=== PATIENT | female | born 1955 | race African-American/Black ===

== ENCOUNTER 2022-01-06 18:55 | Inpatient (IN) | payer OTHER, MEDICAID ==
[~2022-01-06] VITALS: Ht 175.3 cm; Wt 77.1 kg
[2022-01-06 20:46] LABS: Hematocrit 42.5 % (36.0-46.0); Hemoglobin 13.4 g/dL (12.2-16.2); Mean Corpuscular Hemoglobin 27.1 pg (28.0-32.0); Mean Corpuscular Hgb Conc. 31.5 g/dL (32.0-36.0); Red Blood Cells 4.94 10^6/uL (4.0-5.20); Red Cell Distribution Width 13.8 % (11.8-14.3); White Blood Cell 22.6 10^3/uL (4.4-10.8)
[2022-01-06 20:54] LABS: Basophils % (manual) 0 (0.0-2.0); Blast Cells 0; Eosinophils % (manual) 0 (0-7); Myelocytes % 0; Promyelocytes % 0; Reactive Lymphocytes 0
[2022-01-06 21:12] LABS: Albumin 2.2 g/dL (3.4-5.0); BUN/Creatinine Ratio 30.1; Band Neutrophils % (manual) 32; Calcium 8.9 mg/dL (8.5-10.1); Lymphocytes % (manual) 6 (10.0-50.0); Metamyelocytes % 4; Monocytes % (manual) 7 (0-12); Potassium 3.9 mmol/L (3.5-5.1)
[2022-01-06 21:15] LABS: Bilirubin, Total 0.6 mg/dL (0.2-1.0); Total Protein 8.2 g/dL (6.4-8.2)
[2022-01-06] MEDS ORDERED: VANCOMYCIN 1GM/250ML 250 ML IV ONE (22:30)
[2022-01-06] MEDS ORDERED: CEFEPIME 1GM/ 50ML 50 ML IV ONE (22:30)
[2022-01-06] MEDS ORDERED: InsuLIN REG 1unit/0.01ml Soln (100units/ml) IV ONE (22:30)
[2022-01-07 00:10] LABS: Lactic Acid w/Reflex 2.6 mmol/L (0.4-2.0)
[2022-01-07] MEDS ORDERED: DOCUSATE SOD 100 MG CAP PO PRN (01:00)
[2022-01-07] MEDS ORDERED: ONDANSETRON HCL 4 MG/2 ML VIAL IV PRN (01:00)
[2022-01-07] MEDS ORDERED: VANCOMYCIN PER PHARMACY 0 MG IV SCH (01:00)
[2022-01-07] MEDS ORDERED: DEXTROSE (50%) 50ML SYRG IV PRN ×2 (01:00→14:30)
[2022-01-07] MEDS ORDERED: MORPHINE SULFATE INJ 2 MG/ml SYRG IV PRN (02:00)
[2022-01-07] MEDS ORDERED: NITROGLYCERIN 0.4 MG SL TAB SL PRN (02:00)
[2022-01-07 02:55] LABS: Urine Bacteria FEW /hpf (None Seen); Urine Blood TRACE /uL (Negative); Urine Hyaline Cast MANY /lpf (0 - 2); Urine Mucus FEW (None Seen); Urine Specific Gravity 1.019 (1.001-1.035); Urine Sperm PRESENT /hpf (None Seen); Urine WBC 653 /hpf (0 - 5); Urine WBC Clumps PRESENT /hpf (None Seen)
[2022-01-07] MEDS ORDERED: ALBUMIN 25% 100 ML IV ONE (04:00)
[2022-01-07] MEDS: ACCU-CHEK COMFORT CURVE STRIP VI SCH ×8 (04:00→23:34)
[2022-01-07] MEDS: SODIUM CHLORIDE 0.9% 1,000 ML IV SCH ×2 (05:17→17:54)
[2022-01-07 06:20] LABS: Basophils # (auto) 0 10 ^3/uL (0-0.2); Basophils % (auto) 0.1 % (0.0-2.0); Eosinophils # (auto) 0 10 ^3/uL (0-0.8); Eosinophils % (auto) 0.1 % (0.0-7.0); Hematocrit 40.1 % (36.0-46.0); Hemoglobin 12.5 g/dL (12.2-16.2); Lymphocytes # (auto) 1.3 10 ^3/uL (0.4-5.4); Lymphocytes % (auto) 5.7 % (10.0-50.0); Mean Corpuscular Hemoglobin 27.3 pg (28.0-32.0); Mean Corpuscular Hgb Conc. 31.2 g/dL (32.0-36.0); Mean Corpuscular Volume 87.5 fL (80.0-100.0); Monocytes # (auto) 2.8 10 ^3/uL (0-1.3); Monocytes % (auto) 12.2 % (0.0-12.0); Neutrophils % (auto) 81.9 % (37.0-80.0); Red Blood Cells 4.58 10^6/uL (4.0-5.20); Red Cell Distribution Width 13.9 % (11.8-14.3); White Blood Cell 23.2 10^3/uL (4.4-10.8)
[2022-01-07 06:27] LABS: Albumin 1.9 g/dL (3.4-5.0); Calcium 8.6 mg/dL (8.5-10.1); Potassium 3.6 mmol/L (3.5-5.1)
[2022-01-07 06:31] LABS: BUN/Creatinine Ratio 34.7; Bilirubin, Total 0.5 mg/dL (0.2-1.0); Total Protein 7.4 g/dL (6.4-8.2)
[2022-01-07] MEDS: InsuLIN REG 1unit/0.01ml Soln (100units/ml) SC SCH ×8 (07:07→23:34)
[2022-01-07] MEDS: INSULIN LANTUS (GLARGINE) 1 /0.01ml (100units/ml) SC SCH ×2 (07:54→21:54)
[2022-01-07] MEDS ORDERED: CEFEPIME 1GM/ 50ML 50 ML IV SCH (10:00)
[2022-01-07] MEDS: HEPARIN SODIUM (PORCINE) 5000 UNITS/ML 1ML VIAL SC SCH ×2 (10:47→21:53)
[2022-01-07] MEDS: FAMOTIDINE (10MG/ML) 2ML VL IV SCH (10:47)
[2022-01-07] MEDS: ZINC SULFATE 220mg CAP or TAB PO SCH (11:11)
[2022-01-07] MEDS: MULTIPLE VITAMIN TAB PO SCH (11:11)
[2022-01-07] MEDS: ASCORBIC ACID 500 MG TAB PO SCH ×2 (11:11→21:55)
[2022-01-07] MEDS ORDERED: InsuLIN REG 1unit/0.01ml Soln (100units/ml) IV ONE (14:30)
[2022-01-07 16:01] LABS: Calcium 8.8 mg/dL (8.5-10.1)
[2022-01-07] MEDS: ACETAMINOPHEN 325 MG TAB PO PRN (16:09)
[2022-01-07 16:49] LABS: INR 1.13 (0.9-1.15)
[2022-01-07] MEDS: HYDROcodone-ACET 5/325MG TAB PO PRN (21:35)
[2022-01-07] MEDS: CEFEPIME 1GM/ 50ML 50 ML IV SCH (21:56)
[2022-01-08] MEDS: InsuLIN REG 1unit/0.01ml Soln (100units/ml) SC SCH ×5 (00:32→21:50)
[2022-01-08] MEDS: ACCU-CHEK COMFORT CURVE STRIP VI SCH ×5 (00:32→21:46)
[2022-01-08 02:27] VITALS: BP 121/70
[2022-01-08] MEDS ORDERED: CHOL20003 PO (02:31)
[2022-01-08] MEDS ORDERED: LISI2.5T47 PO (02:31)
[2022-01-08] MEDS ORDERED: HYDR12.55 PO (02:31)
[2022-01-08] MEDS: HYDROcodone-ACET 5/325MG TAB PO PRN ×2 (02:48→21:41)
[2022-01-08] MEDS ORDERED: METF-372 PO (03:26)
[2022-01-08] MEDS: VANCOMYCIN 1GM/250ML 250 ML IV SCH (04:58)
[2022-01-08 04:59] VITALS: BP 109/61
[2022-01-08 05:42] LABS: Basophils # (auto) 0 10 ^3/uL (0-0.2); Basophils % (auto) 0.1 % (0.0-2.0); Eosinophils # (auto) 0 10 ^3/uL (0-0.8); Eosinophils % (auto) 0.1 % (0.0-7.0); Lymphocytes # (auto) 1.5 10 ^3/uL (0.4-5.4); Lymphocytes % (auto) 6.6 % (10.0-50.0); Monocytes # (auto) 2.1 10 ^3/uL (0-1.3); Monocytes % (auto) 9.3 % (0.0-12.0); Neutrophils % (auto) 83.9 % (37.0-80.0); Red Blood Cells 4.23 10^6/uL (4.0-5.20); White Blood Cell 22.6 10^3/uL (4.4-10.8)
[2022-01-08 05:43] LABS: Hematocrit 35.7 % (36.0-46.0); Mean Corpuscular Hemoglobin 28.3 pg (28.0-32.0); Mean Corpuscular Hgb Conc. 33.5 g/dL (32.0-36.0); Mean Corpuscular Volume 84.3 fL (80.0-100.0); Red Cell Distribution Width 14.3 % (11.8-14.3)
[2022-01-08 05:51] LABS: Calcium 8.3 mg/dL (8.5-10.1); Potassium 3.2 mmol/L (3.5-5.1)
[2022-01-08 05:56] LABS: BUN/Creatinine Ratio 36.5; Bilirubin, Total 0.4 mg/dL (0.2-1.0)
[2022-01-08] MEDS: INSULIN LANTUS (GLARGINE) 1 /0.01ml (100units/ml) SC SCH ×2 (06:34→21:51)
[2022-01-08 09:00] VITALS: BP 113/55
[2022-01-08] MEDS: HEPARIN SODIUM (PORCINE) 5000 UNITS/ML 1ML VIAL SC SCH (10:00)
[2022-01-08] MEDS: ASCORBIC ACID 500 MG TAB PO SCH ×2 (11:20→21:42)
[2022-01-08] MEDS: ZINC SULFATE 220mg CAP or TAB PO SCH (11:21)
[2022-01-08] MEDS: FAMOTIDINE (10MG/ML) 2ML VL IV SCH (11:21)
[2022-01-08] MEDS: ENOXAPARIN SOD 40 MG/0.4 ML SYRINGE SC SCH (11:21)
[2022-01-08] MEDS: MULTIPLE VITAMIN TAB PO SCH (11:21)
[2022-01-08] MEDS: SODIUM CHLORIDE 0.9% 1,000 ML IV SCH ×2 (11:23→18:00)
[2022-01-08] MEDS: CEFEPIME 1GM/ 50ML 50 ML IV SCH ×2 (11:52→21:56)
[2022-01-08 13:00] VITALS: BP 106/59
[2022-01-08] MEDS ORDERED: LORazepam 0.5 MG TAB PO ONE (14:30)
[2022-01-08] MEDS ORDERED: POTASSIUM CHL 20 Meq TABLET PO ONE (14:30)
[2022-01-08 17:00] VITALS: BP 111/55
[2022-01-08 22:00] VITALS: BP 108/55
[2022-01-09 05:00] VITALS: BP 124/65
[2022-01-09] MEDS: VANCOMYCIN 1GM/250ML 250 ML IV SCH (05:31)
[2022-01-09] MEDS: SODIUM CHLORIDE 0.9% 1,000 ML IV SCH ×2 (05:39→17:10)
[2022-01-09] MEDS: HYDROcodone-ACET 5/325MG TAB PO PRN ×2 (05:57→19:36)
[2022-01-09] MEDS: ACCU-CHEK COMFORT CURVE STRIP VI SCH ×4 (06:23→22:00)
[2022-01-09] MEDS: INSULIN LANTUS (GLARGINE) 1 /0.01ml (100units/ml) SC SCH ×2 (06:25→22:00)
[2022-01-09] MEDS: InsuLIN REG 1unit/0.01ml Soln (100units/ml) SC SCH ×4 (06:26→22:00)
[2022-01-09 08:39] LABS: BUN/Creatinine Ratio 17.9; Calcium 8.1 mg/dL (8.5-10.1); Potassium 3.1 mmol/L (3.5-5.1)
[2022-01-09 08:45] LABS: Basophils # (auto) 0 10 ^3/uL (0-0.2); Eosinophils # (auto) 0 10 ^3/uL (0-0.8); Hematocrit 34.2 % (36.0-46.0); Lymphocytes # (auto) 1.2 10 ^3/uL (0.4-5.4); Lymphocytes % (auto) 4.5 % (10.0-50.0); Mean Corpuscular Hemoglobin 27.5 pg (28.0-32.0); Mean Corpuscular Hgb Conc. 32.2 g/dL (32.0-36.0); Mean Corpuscular Volume 85.3 fL (80.0-100.0); Monocytes % (auto) 7.1 % (0.0-12.0); Neutrophils # (auto) 24.4 10 ^3/uL (1.6-8.6); Neutrophils % (auto) 88.4 % (37.0-80.0); Red Blood Cells 4.01 10^6/uL (4.0-5.20); Red Cell Distribution Width 14.2 % (11.8-14.3)
[2022-01-09 08:51] LABS: White Blood Cell 27.6 10^3/uL (4.4-10.8)
[2022-01-09] MEDS: ENOXAPARIN SOD 40 MG/0.4 ML SYRINGE SC SCH (10:03)
[2022-01-09] MEDS: MULTIPLE VITAMIN TAB PO SCH (10:03)
[2022-01-09] MEDS: ASCORBIC ACID 500 MG TAB PO SCH ×2 (10:03→23:02)
[2022-01-09] MEDS: CEFEPIME 1GM/ 50ML 50 ML IV SCH (10:03)
[2022-01-09] MEDS: ZINC SULFATE 220mg CAP or TAB PO SCH (10:03)
[2022-01-09 10:11] VITALS: BP 96/56
[2022-01-09] MEDS ORDERED: POTASSIUM CHL 20 Meq TABLET PO ONE (12:00)
[2022-01-09 13:00] VITALS: BP 99/58
[2022-01-09] MEDS: CEFEPIME 2 GM in SODIUM CHL 0.9% 50 ML IV SCH ×2 (13:36→22:45)
[2022-01-09] MEDS: ACETAMINOPHEN 325 MG TAB PO PRN (16:43)
[2022-01-09 16:44] VITALS: BP 113/65
[2022-01-09 22:00] VITALS: BP 99/51
[2022-01-10] MEDS: HYDROcodone-ACET 5/325MG TAB PO PRN (04:00)
[2022-01-10 05:00] VITALS: BP 102/55
[2022-01-10] MEDS: VANCOMYCIN 1GM/250ML 250 ML IV SCH (05:02)
[2022-01-10 05:33] LABS: Hematocrit 33.4 % (36.0-46.0); Hemoglobin 10.7 g/dL (12.2-16.2); Mean Corpuscular Hemoglobin 27.1 pg (28.0-32.0); Mean Corpuscular Volume 84.6 fL (80.0-100.0); Red Blood Cells 3.94 10^6/uL (4.0-5.20); Red Cell Distribution Width 14.2 % (11.8-14.3)
[2022-01-10 05:36] LABS: Basophils % (manual) 0 (0.0-2.0); Blast Cells 0; Eosinophils % (manual) 0 (0-7); Metamyelocytes % 0; Myelocytes % 0; Promyelocytes % 0; Reactive Lymphocytes 0
[2022-01-10 05:46] LABS: BUN/Creatinine Ratio 15.5; Calcium 8.1 mg/dL (8.5-10.1); Potassium 3.6 mmol/L (3.5-5.1)
[2022-01-10] MEDS: INSULIN LANTUS (GLARGINE) 1 /0.01ml (100units/ml) SC SCH ×2 (06:05→22:00)
[2022-01-10] MEDS: InsuLIN REG 1unit/0.01ml Soln (100units/ml) SC SCH ×4 (06:05→22:00)
[2022-01-10] MEDS: SODIUM CHLORIDE 0.9% 1,000 ML IV SCH ×2 (06:05→19:50)
[2022-01-10] MEDS: ACCU-CHEK COMFORT CURVE STRIP VI SCH ×4 (06:06→22:20)
[2022-01-10] MEDS: CEFEPIME 2 GM in SODIUM CHL 0.9% 50 ML IV SCH ×3 (06:51→21:56)
[2022-01-10 07:09] LABS: Band Neutrophils % (manual) 27; Lymphocytes % (manual) 12 (10.0-50.0); Monocytes % (manual) 2 (0-12)
[2022-01-10 08:30] VITALS: BP 131/58
[2022-01-10] MEDS: ZINC SULFATE 220mg CAP or TAB PO SCH (09:35)
[2022-01-10] MEDS: ENOXAPARIN SOD 40 MG/0.4 ML SYRINGE SC SCH (09:36)
[2022-01-10] MEDS: MULTIPLE VITAMIN TAB PO SCH (09:36)
[2022-01-10] MEDS: ASCORBIC ACID 500 MG TAB PO SCH ×2 (09:36→21:57)
[2022-01-10] MEDS ORDERED: BUPIVACAINE 0.5% P/F INJ 10 ML VIAL ONE (12:30)
[2022-01-10] MEDS ORDERED: LIDOCAINE 1%HCL (LOCAL ANESTH) 10 ML MDV ONE (12:30)
[2022-01-10 12:35] VITALS: BP 106/58
[2022-01-10 16:32] VITALS: BP 114/61
[2022-01-10] MEDS: ACETAMINOPHEN 325 MG TAB PO PRN (17:54)
[2022-01-10 22:00] VITALS: BP 108/60
[2022-01-11 05:00] VITALS: BP 143/65
[2022-01-11] MEDS: VANCOMYCIN 1GM/250ML 250 ML IV SCH (05:20)
[2022-01-11] MEDS: InsuLIN REG 1unit/0.01ml Soln (100units/ml) SC SCH ×4 (06:16→22:19)
[2022-01-11] MEDS: ACCU-CHEK COMFORT CURVE STRIP VI SCH ×6 (06:17→22:19)
[2022-01-11] MEDS: INSULIN LANTUS (GLARGINE) 1 /0.01ml (100units/ml) SC SCH ×2 (06:17→22:21)
[2022-01-11] MEDS: CEFEPIME 2 GM in SODIUM CHL 0.9% 50 ML IV SCH ×3 (06:18→22:18)
[2022-01-11 06:19] LABS: Hematocrit 33.5 % (36.0-46.0); Hemoglobin 11.2 g/dL (12.2-16.2); Mean Corpuscular Hemoglobin 28.3 pg (28.0-32.0); Mean Corpuscular Hgb Conc. 33.4 g/dL (32.0-36.0); Mean Corpuscular Volume 84.8 fL (80.0-100.0); Red Blood Cells 3.95 10^6/uL (4.0-5.20); Red Cell Distribution Width 14.7 % (11.8-14.3); White Blood Cell 27.9 10^3/uL (4.4-10.8)
[2022-01-11] MEDS ORDERED: BUPIVACAINE 0.5% P/F INJ 10 ML VIAL ONE (06:28)
[2022-01-11] MEDS ORDERED: LIDOCAINE 1%HCL (LOCAL ANESTH) 10 ML MDV ONE (06:28)
[2022-01-11 06:54] LABS: Basophils % (manual) 0 (0.0-2.0); Blast Cells 0; Eosinophils % (manual) 0 (0-7); Metamyelocytes % 0; Myelocytes % 0; Promyelocytes % 0; Reactive Lymphocytes 0
[2022-01-11] MEDS ORDERED: MIDAZOLAM HCL 2MG/2ML 2ml VIAL (1mg/ml) ONE (07:27)
[2022-01-11] MEDS ORDERED: fentaNYL CITRATE 100 MCG/2 ML VL ONE (07:27)
[2022-01-11] MEDS ORDERED: LIDOCAINE 2% (LOCAL ANESTH.) PF 5ml SDV ONE (07:29)
[2022-01-11] MEDS ORDERED: ONDANSETRON HCL 4 MG/2 ML VIAL ONE (07:29)
[2022-01-11] MEDS ORDERED: PROPOFOL 10 MG/ML 20 ML IV ONE (07:29)
[2022-01-11 09:00] VITALS: BP 122/60
[2022-01-11] MEDS ORDERED: ONDANSETRON HCL 4 MG/2 ML VIAL IV PRN (10:00)
[2022-01-11] MEDS ORDERED: MEPERIDINE HCL (25 MG/ML) 1ML VIAL IM ONE (10:00)
[2022-01-11] MEDS ORDERED: HYDROmorphone HCL 2 MG/ML VL/or syr IV PRN (10:00)
[2022-01-11] MEDS: ENOXAPARIN SOD 40 MG/0.4 ML SYRINGE SC SCH (10:00)
[2022-01-11] MEDS ORDERED: MEPERIDINE HCL (25 MG/ML) 1ML VIAL ONE (10:07)
[2022-01-11] MEDS ORDERED: MEPERIDINE HCL (25 MG/ML) 1ML VIAL IV ONE (10:15)
[2022-01-11 10:41] VITALS: BP 124/53
[2022-01-11] MEDS ORDERED: DEXTROSE (50%) 50ML SYRG IV PRN (11:00)
[2022-01-11] MEDS: ZINC SULFATE 220mg CAP or TAB PO SCH (12:43)
[2022-01-11] MEDS: MULTIPLE VITAMIN TAB PO SCH (12:43)
[2022-01-11] MEDS: ASCORBIC ACID 500 MG TAB PO SCH ×2 (12:43→21:54)
[2022-01-11] MEDS: Glucerna Carbsteady SHAKE Vanilla 8oz PO SCH ×2 (12:48→18:36)
[2022-01-11 13:00] VITALS: BP 111/59
[2022-01-11] MEDS ORDERED: ASPirin 81 mg TAB PO ONE (13:00)
[2022-01-11] MEDS ORDERED: ENOXAPARIN SOD 40 MG/0.4 ML SYRINGE SC ONE (13:00)
[2022-01-11 15:32] LABS: Band Neutrophils % (manual) 2; Lymphocytes % (manual) 8 (10.0-50.0); Monocytes % (manual) 12 (0-12)
[2022-01-11 22:00] VITALS: BP 102/51
[2022-01-11] MEDS: SODIUM CHLORIDE 0.9% 1,000 ML IV SCH (22:40)
[2022-01-12] MEDS: ACETAMINOPHEN 325 MG TAB PO PRN (01:25)
[2022-01-12 04:43] VITALS: BP 94/55
[2022-01-12] MEDS: VANCOMYCIN 1GM/250ML 250 ML IV SCH (05:10)
[2022-01-12 05:46] LABS: Hematocrit 29.1 % (36.0-46.0); Hemoglobin 9.6 g/dL (12.2-16.2); Mean Corpuscular Hemoglobin 27.9 pg (28.0-32.0); Mean Corpuscular Hgb Conc. 32.9 g/dL (32.0-36.0); Mean Corpuscular Volume 84.8 fL (80.0-100.0); Red Blood Cells 3.43 10^6/uL (4.0-5.20); Red Cell Distribution Width 14.6 % (11.8-14.3); White Blood Cell 28.5 10^3/uL (4.4-10.8)
[2022-01-12 05:50] LABS: Basophils % (manual) 0 (0.0-2.0); Blast Cells 0; Eosinophils % (manual) 0 (0-7); Myelocytes % 0; Promyelocytes % 0
[2022-01-12] MEDS: InsuLIN REG 1unit/0.01ml Soln (100units/ml) SC SCH ×4 (06:10→21:54)
[2022-01-12] MEDS: CEFEPIME 2 GM in SODIUM CHL 0.9% 50 ML IV SCH ×3 (06:11→21:53)
[2022-01-12] MEDS: INSULIN LANTUS (GLARGINE) 1 /0.01ml (100units/ml) SC SCH ×2 (06:13→21:55)
[2022-01-12] MEDS: ACCU-CHEK COMFORT CURVE STRIP VI SCH ×4 (06:14→21:54)
[2022-01-12 06:20] LABS: BUN/Creatinine Ratio 13.8; Calcium 7.7 mg/dL (8.5-10.1); Potassium 3.3 mmol/L (3.5-5.1)
[2022-01-12 08:00] VITALS: BP 101/56
[2022-01-12] MEDS: Glucerna Carbsteady SHAKE Vanilla 8oz PO SCH ×3 (08:57→19:08)
[2022-01-12 09:24] VITALS: BP 101/56
[2022-01-12] MEDS: HYDROcodone-ACET 5/325MG TAB PO PRN ×2 (09:33→14:25)
[2022-01-12] MEDS: ASCORBIC ACID 500 MG TAB PO SCH ×2 (09:34→21:54)
[2022-01-12] MEDS: ENOXAPARIN SOD 40 MG/0.4 ML SYRINGE SC SCH (09:34)
[2022-01-12] MEDS: ZINC SULFATE 220mg CAP or TAB PO SCH (09:34)
[2022-01-12] MEDS: MULTIPLE VITAMIN TAB PO SCH (09:34)
[2022-01-12] MEDS: DAKINS QUARTER STR 0.125% (NaHypochlorite) 473 ML TOPICAL SOL TOP SCH (09:34)
[2022-01-12] MEDS ORDERED: ENOXAPARIN SOD 40 MG/0.4 ML SYRINGE SC SCH (10:00)
[2022-01-12] MEDS ORDERED: ASPirin 81 mg TAB PO SCH (10:00)
[2022-01-12 10:40] LABS: Band Neutrophils % (manual) 4; Lymphocytes % (manual) 7 (10.0-50.0); Metamyelocytes % 1; Monocytes % (manual) 5 (0-12); Reactive Lymphocytes 1
[2022-01-12] MEDS ORDERED: POTASSIUM CHL 20 Meq TABLET PO ONE (12:00)
[2022-01-12] MEDS: SODIUM CHLORIDE 0.9% 1,000 ML IV SCH (12:26)
[2022-01-12 13:00] VITALS: BP 100/50
[2022-01-12 17:00] VITALS: BP_SYST 104; BP_SYST 123; BP_DIAS 50; BP_DIAS 53
[2022-01-12 23:21] VITALS: BP 113/51
[2022-01-13 04:20] LABS: Anion Gap 9 (5-15); BUN/Creatinine Ratio 14.6; Blood Urea Nitrogen 7 mg/dL (7-18); Calcium 7.4 mg/dL (8.5-10.1); Carbon Dioxide 19 mmol/L (21-32); Chloride 104 mmol/L (98-107); GFR African American 166 mL/min; GFR Non-African American 137 mL/min; Glucose 92 mg/dL (74-106); Potassium 3.7 mmol/L (3.5-5.1); Sodium 132 mmol/L (136-145)
[2022-01-13 05:00] VITALS: BP 122/55
[2022-01-13] MEDS: VANCOMYCIN 1GM/250ML 250 ML IV SCH ×2 (05:10→21:02)
[2022-01-13] MEDS: SODIUM CHLORIDE 0.9% 1,000 ML IV SCH ×2 (06:07→14:30)
[2022-01-13] MEDS: CEFEPIME 2 GM in SODIUM CHL 0.9% 50 ML IV SCH ×3 (06:15→22:24)
[2022-01-13] MEDS: ACCU-CHEK COMFORT CURVE STRIP VI SCH ×4 (06:32→22:25)
[2022-01-13] MEDS: InsuLIN REG 1unit/0.01ml Soln (100units/ml) SC SCH ×5 (06:32→22:27)
[2022-01-13] MEDS: INSULIN LANTUS (GLARGINE) 1 /0.01ml (100units/ml) SC SCH ×2 (06:32→22:27)
[2022-01-13 06:53] LABS: Hematocrit 30.2 % (36.0-46.0); Hemoglobin 9.8 g/dL (12.2-16.2); Mean Corpuscular Hemoglobin 27.5 pg (28.0-32.0); Mean Corpuscular Hgb Conc. 32.3 g/dL (32.0-36.0); Mean Corpuscular Volume 85.2 fL (80.0-100.0); Red Blood Cells 3.55 10^6/uL (4.0-5.20); Red Cell Distribution Width 14.5 % (11.8-14.3)
[2022-01-13 06:54] LABS: White Blood Cell 31.3 10^3/uL (4.4-10.8)
[2022-01-13 06:55] LABS: Basophils % (manual) 0 (0.0-2.0); Blast Cells 0; Eosinophils % (manual) 0 (0-7); Myelocytes % 0; Promyelocytes % 0; Reactive Lymphocytes 0
[2022-01-13 08:00] VITALS: BP 127/93
[2022-01-13] MEDS: Glucerna Carbsteady SHAKE Vanilla 8oz PO SCH ×3 (08:27→17:37)
[2022-01-13] MEDS: HYDROcodone-ACET 5/325MG TAB PO PRN ×2 (08:27→13:14)
[2022-01-13] MEDS: ASCORBIC ACID 500 MG TAB PO SCH ×2 (08:28→22:24)
[2022-01-13] MEDS: ZINC SULFATE 220mg CAP or TAB PO SCH (08:28)
[2022-01-13] MEDS: ENOXAPARIN SOD 40 MG/0.4 ML SYRINGE SC SCH (08:28)
[2022-01-13] MEDS: MULTIPLE VITAMIN TAB PO SCH (08:28)
[2022-01-13 08:38] LABS: Band Neutrophils % (manual) 12; Lymphocytes % (manual) 11 (10.0-50.0); Metamyelocytes % 1; Monocytes % (manual) 6 (0-12)
[2022-01-13] MEDS ORDERED: VANCOMYCIN 1GM/250ML 250 ML IV ONE (09:00)
[2022-01-13] MEDS: DAKINS QUARTER STR 0.125% (NaHypochlorite) 473 ML TOPICAL SOL TOP SCH (09:42)
[2022-01-13 12:15] VITALS: BP 111/60
[2022-01-13 17:08] VITALS: BP 140/70
[2022-01-13 22:00] VITALS: BP 106/47
[2022-01-14] MEDS: SODIUM CHLORIDE 0.9% 1,000 ML IV SCH ×2 (03:50→17:10)
[2022-01-14 05:00] VITALS: BP 106/60
[2022-01-14] MEDS: ACCU-CHEK COMFORT CURVE STRIP VI SCH ×4 (06:20→21:56)
[2022-01-14] MEDS: INSULIN LANTUS (GLARGINE) 1 /0.01ml (100units/ml) SC SCH ×2 (06:20→22:38)
[2022-01-14] MEDS: CEFEPIME 2 GM in SODIUM CHL 0.9% 50 ML IV SCH ×3 (06:20→21:56)
[2022-01-14] MEDS: InsuLIN REG 1unit/0.01ml Soln (100units/ml) SC SCH ×4 (06:21→22:39)
[2022-01-14] MEDS: HYDROcodone-ACET 5/325MG TAB PO PRN ×2 (06:50→21:57)
[2022-01-14 06:52] LABS: Hematocrit 29.2 % (36.0-46.0); Hemoglobin 9.6 g/dL (12.2-16.2); Mean Corpuscular Hemoglobin 27.6 pg (28.0-32.0); Mean Corpuscular Hgb Conc. 32.9 g/dL (32.0-36.0); Mean Corpuscular Volume 83.7 fL (80.0-100.0); Red Blood Cells 3.49 10^6/uL (4.0-5.20); Red Cell Distribution Width 14.2 % (11.8-14.3)
[2022-01-14 06:55] LABS: White Blood Cell 31.2 10^3/uL (4.4-10.8)
[2022-01-14 06:57] LABS: Basophils % (manual) 0 (0.0-2.0); Blast Cells 0; Eosinophils % (manual) 0 (0-7); Metamyelocytes % 0; Myelocytes % 0; Promyelocytes % 0; Reactive Lymphocytes 0
[2022-01-14 07:35] LABS: Calcium 7.6 mg/dL (8.5-10.1); Potassium 3.3 mmol/L (3.5-5.1)
[2022-01-14 07:37] LABS: BUN/Creatinine Ratio 9.1
[2022-01-14 08:13] LABS: Band Neutrophils % (manual) 12; Lymphocytes % (manual) 12 (10.0-50.0); Monocytes % (manual) 4 (0-12)
[2022-01-14 09:00] VITALS: BP 80/37
[2022-01-14] MEDS: Glucerna Carbsteady SHAKE Vanilla 8oz PO SCH ×3 (09:50→18:14)
[2022-01-14] MEDS: ZINC SULFATE 220mg CAP or TAB PO SCH (09:50)
[2022-01-14] MEDS: VANCOMYCIN 1GM/250ML 250 ML IV SCH ×2 (09:50→20:51)
[2022-01-14] MEDS: MULTIPLE VITAMIN TAB PO SCH (09:50)
[2022-01-14] MEDS: ENOXAPARIN SOD 40 MG/0.4 ML SYRINGE SC SCH (09:51)
[2022-01-14] MEDS: ASCORBIC ACID 500 MG TAB PO SCH ×2 (09:51→21:56)
[2022-01-14] MEDS: DAKINS QUARTER STR 0.125% (NaHypochlorite) 473 ML TOPICAL SOL TOP SCH (09:51)
[2022-01-14] MEDS: MORPHINE SULFATE INJ 2 MG/ml SYRG IV PRN (11:43)
[2022-01-14 12:39] VITALS: BP 110/54
[2022-01-14] MEDS ORDERED: POTASSIUM EFFERVESENT TAB 25 MEQ PO ONE (15:00)
[2022-01-14 22:00] VITALS: BP 92/51
[2022-01-15 04:48] VITALS: BP 128/61
[2022-01-15 05:52] LABS: Potassium 3.4 mmol/L (3.5-5.1)
[2022-01-15] MEDS: INSULIN LANTUS (GLARGINE) 1 /0.01ml (100units/ml) SC SCH ×2 (05:55→20:59)
[2022-01-15] MEDS: ACCU-CHEK COMFORT CURVE STRIP VI SCH ×4 (05:55→21:31)
[2022-01-15] MEDS: InsuLIN REG 1unit/0.01ml Soln (100units/ml) SC SCH ×4 (05:56→20:59)
[2022-01-15] MEDS: CEFEPIME 2 GM in SODIUM CHL 0.9% 50 ML IV SCH ×3 (05:56→21:31)
[2022-01-15 05:57] LABS: Albumin 1.2 g/dL (3.4-5.0); Calcium 7.9 mg/dL (8.5-10.1)
[2022-01-15 05:59] LABS: Hematocrit 30.5 % (36.0-46.0); Hemoglobin 9.8 g/dL (12.2-16.2); Mean Corpuscular Hgb Conc. 32.2 g/dL (32.0-36.0); Mean Corpuscular Volume 83.8 fL (80.0-100.0); Red Blood Cells 3.64 10^6/uL (4.0-5.20); Red Cell Distribution Width 14.6 % (11.8-14.3); White Blood Cell 28.6 10^3/uL (4.4-10.8)
[2022-01-15 06:00] LABS: Bilirubin, Total 0.4 mg/dL (0.2-1.0); Total Protein 6.6 g/dL (6.4-8.2)
[2022-01-15 06:01] LABS: Basophils % (manual) 0 (0.0-2.0); Blast Cells 0; Eosinophils % (manual) 0 (0-7); Metamyelocytes % 0; Myelocytes % 0; Promyelocytes % 0; Reactive Lymphocytes 0
[2022-01-15] MEDS: SODIUM CHLORIDE 0.9% 1,000 ML IV SCH ×2 (06:04→19:50)
[2022-01-15 06:47] LABS: Band Neutrophils % (manual) 10; Lymphocytes % (manual) 3 (10.0-50.0); Monocytes % (manual) 3 (0-12)
[2022-01-15 09:00] VITALS: BP 114/58
[2022-01-15] MEDS: VANCOMYCIN 1GM/250ML 250 ML IV SCH (10:02)
[2022-01-15] MEDS: Glucerna Carbsteady SHAKE Vanilla 8oz PO SCH ×3 (10:02→18:05)
[2022-01-15] MEDS: ZINC SULFATE 220mg CAP or TAB PO SCH (10:03)
[2022-01-15] MEDS: MULTIPLE VITAMIN TAB PO SCH (10:03)
[2022-01-15] MEDS: ASCORBIC ACID 500 MG TAB PO SCH ×2 (10:03→21:31)
[2022-01-15] MEDS: Juven Orange Powder PACKET 27.5gm PO SCH (10:03)
[2022-01-15] MEDS: DAKINS QUARTER STR 0.125% (NaHypochlorite) 473 ML TOPICAL SOL TOP SCH (10:04)
[2022-01-15] MEDS: ENOXAPARIN SOD 40 MG/0.4 ML SYRINGE SC SCH (10:04)
[2022-01-15] MEDS ORDERED: POTASSIUM CHL 20 Meq TABLET PO ONE (11:15)
[2022-01-15 13:00] VITALS: BP 147/76
[2022-01-15 17:00] VITALS: BP 107/47
[2022-01-15] MEDS: Pro-Stat SF 30ml Vanilla PO SCH (18:05)
[2022-01-15] MEDS: MORPHINE SULFATE INJ 2 MG/ml SYRG IV PRN (18:53)
[2022-01-15 22:00] VITALS: BP 100/40
[2022-01-15] MEDS: ACETAMINOPHEN 325 MG TAB PO PRN (22:00)
[2022-01-16 05:00] VITALS: BP 133/78
[2022-01-16] MEDS: CEFEPIME 2 GM in SODIUM CHL 0.9% 50 ML IV SCH ×2 (05:57→18:38)
[2022-01-16 06:23] LABS: INR 1.65 (0.9-1.15); Partial Thromboplastin Time 41.2 sec (24.6-33.4)
[2022-01-16 06:24] LABS: Basophils # (auto) 0.1 10 ^3/uL (0-0.2); Eosinophils # (auto) 0 10 ^3/uL (0-0.8); Eosinophils % (auto) 0.1 % (0.0-7.0); Hematocrit 33.5 % (36.0-46.0); Red Blood Cells 3.98 10^6/uL (4.0-5.20)
[2022-01-16 06:28] LABS: BUN/Creatinine Ratio 11.1; Basophils % (auto) 0.2 % (0.0-2.0); Calcium 8.3 mg/dL (8.5-10.1); Hemoglobin 10.9 g/dL (12.2-16.2); Lymphocytes # (auto) 1.2 10 ^3/uL (0.4-5.4); Lymphocytes % (auto) 4.8 % (10.0-50.0); Mean Corpuscular Hemoglobin 27.5 pg (28.0-32.0); Mean Corpuscular Hgb Conc. 32.7 g/dL (32.0-36.0); Mean Corpuscular Volume 84.3 fL (80.0-100.0); Monocytes # (auto) 1.5 10 ^3/uL (0-1.3); Monocytes % (auto) 6.1 % (0.0-12.0); Neutrophils # (auto) 22.5 10 ^3/uL (1.6-8.6); Neutrophils % (auto) 88.8 % (37.0-80.0); Potassium 3.4 mmol/L (3.5-5.1); Red Cell Distribution Width 14.2 % (11.8-14.3); White Blood Cell 25.4 10^3/uL (4.4-10.8)
[2022-01-16] MEDS: InsuLIN REG 1unit/0.01ml Soln (100units/ml) SC SCH ×4 (06:33→22:00)
[2022-01-16] MEDS: INSULIN LANTUS (GLARGINE) 1 /0.01ml (100units/ml) SC SCH ×2 (06:34→22:00)
[2022-01-16] MEDS: ACCU-CHEK COMFORT CURVE STRIP VI SCH ×4 (06:34→22:00)
[2022-01-16] MEDS: Glucerna Carbsteady SHAKE Vanilla 8oz PO SCH ×3 (08:28→18:16)
[2022-01-16] MEDS: Pro-Stat SF 30ml Vanilla PO SCH ×2 (08:28→17:43)
[2022-01-16 09:00] VITALS: BP 114/73
[2022-01-16] MEDS: SODIUM CHLORIDE 0.9% 1,000 ML IV SCH ×2 (09:10→22:30)
[2022-01-16] MEDS: Juven Orange Powder PACKET 27.5gm PO SCH (10:00)
[2022-01-16] MEDS: VANCOMYCIN 1GM/250ML 250 ML IV SCH (10:00)
[2022-01-16] MEDS: ZINC SULFATE 220mg CAP or TAB PO SCH (10:34)
[2022-01-16] MEDS: MULTIPLE VITAMIN TAB PO SCH (10:35)
[2022-01-16] MEDS: ASCORBIC ACID 500 MG TAB PO SCH ×2 (10:35→22:01)
[2022-01-16] MEDS: ENOXAPARIN SOD 40 MG/0.4 ML SYRINGE SC SCH (10:36)
[2022-01-16] MEDS: DAKINS QUARTER STR 0.125% (NaHypochlorite) 473 ML TOPICAL SOL TOP SCH (10:36)
[2022-01-16] MEDS ORDERED: POTASSIUM CHL 20 Meq TABLET PO ONE (10:45)
[2022-01-16] MEDS ORDERED: CLINIMIX PER PHARMACY 0 ML IV SCH (10:45)
[2022-01-16 11:28] LABS: Magnesium 1.9 mg/dL (1.6-2.6); Phosphorus 2.6 mg/dL (2.5-4.90)
[2022-01-16] MEDS ORDERED: POTASSIUM PHOSP 22MEQ(15MMOLE) in NS 100 ML IV ONE ×2 (12:00→18:30)
[2022-01-16 13:00] VITALS: BP 106/47
[2022-01-16] MEDS: ACETAMINOPHEN 325 MG TAB PO PRN (13:40)
[2022-01-16 16:55] VITALS: BP 88/35
[2022-01-16] MEDS ORDERED: LIDOCAINE 1% (LOCAL ANESTH.) PF 5ml SDV ID ONE (19:00)
[2022-01-16] MEDS: AMINO ACID INFUSION IN D10W 1,000 ML IV SCH (20:10)
[2022-01-16 22:00] VITALS: BP 122/60
[2022-01-16] MEDS: SODIUM CHLOR 0.9% PF (SALINE LOCK) 10ML VIAL/SYR IV SCH (22:00)
[2022-01-17] MEDS: CEFEPIME 2 GM in SODIUM CHL 0.9% 50 ML IV SCH ×3 (02:30→18:02)
[2022-01-17 05:00] VITALS: BP 101/53
[2022-01-17] MEDS: INSULIN LANTUS (GLARGINE) 1 /0.01ml (100units/ml) SC SCH ×2 (06:39→21:54)
[2022-01-17] MEDS: InsuLIN REG 1unit/0.01ml Soln (100units/ml) SC SCH ×4 (06:40→23:35)
[2022-01-17] MEDS: ACCU-CHEK COMFORT CURVE STRIP VI SCH ×4 (06:40→23:34)
[2022-01-17 07:30] LABS: Basophils # (auto) 0.1 10 ^3/uL (0-0.2); Basophils % (auto) 0.5 % (0.0-2.0); Eosinophils # (auto) 0 10 ^3/uL (0-0.8); Eosinophils % (auto) 0.1 % (0.0-7.0); Hematocrit 27.8 % (36.0-46.0); Hemoglobin 9.1 g/dL (12.2-16.2); Lymphocytes # (auto) 1.4 10 ^3/uL (0.4-5.4); Lymphocytes % (auto) 7.6 % (10.0-50.0); Mean Corpuscular Hemoglobin 27.2 pg (28.0-32.0); Mean Corpuscular Hgb Conc. 32.7 g/dL (32.0-36.0); Mean Corpuscular Volume 83.3 fL (80.0-100.0); Monocytes # (auto) 1.5 10 ^3/uL (0-1.3); Monocytes % (auto) 8.3 % (0.0-12.0); Neutrophils # (auto) 15.7 10 ^3/uL (1.6-8.6); Neutrophils % (auto) 83.5 % (37.0-80.0); Red Blood Cells 3.34 10^6/uL (4.0-5.20); Red Cell Distribution Width 14.5 % (11.8-14.3); White Blood Cell 18.8 10^3/uL (4.4-10.8)
[2022-01-17 07:42] LABS: Albumin 1.1 g/dL (3.4-5.0); Calcium 7.5 mg/dL (8.5-10.1); Magnesium 1.9 mg/dL (1.6-2.6)
[2022-01-17 07:46] LABS: BUN/Creatinine Ratio 13.5; Bilirubin, Total 0.4 mg/dL (0.2-1.0); Phosphorus 2.3 mg/dL (2.5-4.90); Total Protein 6.5 g/dL (6.4-8.2)
[2022-01-17 07:50] LABS: Potassium 2.8 mmol/L (3.5-5.1)
[2022-01-17] MEDS: Pro-Stat SF 30ml Vanilla PO SCH ×2 (08:00→17:09)
[2022-01-17] MEDS: Glucerna Carbsteady SHAKE Vanilla 8oz PO SCH ×3 (08:00→17:08)
[2022-01-17] MEDS: ACETAMINOPHEN 325 MG TAB PO PRN ×2 (09:10→21:35)
[2022-01-17] MEDS: VANCOMYCIN 1GM/250ML 250 ML IV SCH (09:12)
[2022-01-17] MEDS: SODIUM CHLOR 0.9% PF (SALINE LOCK) 10ML VIAL/SYR IV SCH ×2 (09:13→21:35)
[2022-01-17] MEDS ORDERED: POTASSIUM CHLORIDE 60 MEQ, LIDOCAINE 1% (LOCAL ANESTH.) 6 ML in SODIUM CHL 0.9% 500 ML IV ONE (09:15)
[2022-01-17 09:28] VITALS: BP 111/63
[2022-01-17 09:58] LABS: BUN/Creatinine Ratio 11.6; Calcium 7.9 mg/dL (8.5-10.1)
[2022-01-17] MEDS: Juven Orange Powder PACKET 27.5gm PO SCH (10:00)
[2022-01-17] MEDS: ENOXAPARIN SOD 40 MG/0.4 ML SYRINGE SC SCH (10:00)
[2022-01-17] MEDS: DAKINS QUARTER STR 0.125% (NaHypochlorite) 473 ML TOPICAL SOL TOP SCH (10:00)
[2022-01-17] MEDS: MULTIPLE VITAMIN TAB PO SCH (10:00)
[2022-01-17] MEDS: ASCORBIC ACID 500 MG TAB PO SCH ×2 (10:00→21:34)
[2022-01-17] MEDS: ZINC SULFATE 220mg CAP or TAB PO SCH (10:00)
[2022-01-17 10:02] LABS: Potassium 2.9 mmol/L (3.5-5.1)
[2022-01-17 10:47] LABS: INR 1.58 (0.9-1.15); Partial Thromboplastin Time 44.4 sec (24.6-33.4)
[2022-01-17] MEDS: SOD CHL 0.9%/ KCL 20MEQ 1,000 ML IV SCH ×2 (11:04→21:15)
[2022-01-17] MEDS: SODIUM CHLORIDE 0.9% 1,000 ML IV SCH (11:05)
[2022-01-17] MEDS ORDERED: DEXTROSE (50%) 50ML SYRG IV SCH (12:00)
[2022-01-17 12:13] VITALS: BP 105/52
[2022-01-17] MEDS ORDERED: fentaNYL CITRATE 100 MCG/2 ML VL ONE (14:26)
[2022-01-17] MEDS ORDERED: PROPOFOL 10 MG/ML 20 ML IV ONE (14:27)
[2022-01-17] MEDS ORDERED: SODIUM CHLORIDE LOCK 10 ML ONE (14:27)
[2022-01-17] MEDS ORDERED: MIDAZOLAM HCL 2MG/2ML 2ml VIAL (1mg/ml) ONE (14:27)
[2022-01-17] MEDS ORDERED: ONDANSETRON HCL 4 MG/2 ML VIAL ONE (14:27)
[2022-01-17] MEDS ORDERED: KETAMINE HCL 10 ML ONE (14:27)
[2022-01-17] MEDS ORDERED: ROPIVACAINE 0.5% (5MG/ML) 20ML AMPULE IJ ONE (14:31)
[2022-01-17] MEDS ORDERED: POTASSIUM PHOSP 26.4MEQ(18MMOL) IN NS 100 ML IV ONE (16:00)
[2022-01-17 16:42] VITALS: BP 149/72
[2022-01-17] MEDS ORDERED: PHYTONADIONE (VIT K)10 MG/ML 1ML VIAL SUBCUT ONE (20:00)
[2022-01-17] MEDS: AMINO ACID INFUSION IN D10W 1,000 ML IV SCH (21:38)
[2022-01-17 22:00] VITALS: BP 134/55
[2022-01-18] VITALS (8 sets, daily range): BP systolic 106–151; BP diastolic 50–79
[2022-01-18] MEDS: SODIUM CHLORIDE 0.9% 1,000 ML IV SCH (01:10)
[2022-01-18] MEDS: CEFEPIME 2 GM in SODIUM CHL 0.9% 50 ML IV SCH ×3 (02:32→18:23)
[2022-01-18] MEDS: InsuLIN REG 1unit/0.01ml Soln (100units/ml) SC SCH ×4 (05:45→23:35)
[2022-01-18] MEDS: ACCU-CHEK COMFORT CURVE STRIP VI SCH ×4 (05:45→23:35)
[2022-01-18] MEDS: INSULIN LANTUS (GLARGINE) 1 /0.01ml (100units/ml) SC SCH ×2 (05:46→21:52)
[2022-01-18] MEDS: SOD CHL 0.9%/ KCL 20MEQ 1,000 ML IV SCH ×2 (06:30→18:00)
[2022-01-18 06:39] LABS: Eosinophils # (auto) 0.1 10 ^3/uL (0-0.8); Eosinophils % (auto) 0.4 % (0.0-7.0); Lymphocytes # (auto) 1.1 10 ^3/uL (0.4-5.4)
[2022-01-18 06:42] LABS: INR 1.32 (0.9-1.15); Partial Thromboplastin Time 38.9 sec (24.6-33.4)
[2022-01-18 06:43] LABS: Basophils # (auto) 0.1 10 ^3/uL (0-0.2); Basophils % (auto) 0.5 % (0.0-2.0); Hemoglobin 8.7 g/dL (12.2-16.2); Lymphocytes % (auto) 6.7 % (10.0-50.0); Mean Corpuscular Hemoglobin 27.9 pg (28.0-32.0); Mean Corpuscular Hgb Conc. 33.5 g/dL (32.0-36.0); Mean Corpuscular Volume 83.5 fL (80.0-100.0); Monocytes # (auto) 1.4 10 ^3/uL (0-1.3); Neutrophils # (auto) 13.4 10 ^3/uL (1.6-8.6); Neutrophils % (auto) 83.4 % (37.0-80.0); Red Blood Cells 3.12 10^6/uL (4.0-5.20); Red Cell Distribution Width 14.6 % (11.8-14.3)
[2022-01-18 06:47] LABS: Magnesium 1.7 mg/dL (1.6-2.6); Potassium 3.2 mmol/L (3.5-5.1)
[2022-01-18 06:49] LABS: Albumin 1.2 g/dL (3.4-5.0); BUN/Creatinine Ratio 11.5; Calcium 7.6 mg/dL (8.5-10.1)
[2022-01-18 07:01] LABS: Bilirubin, Total 0.3 mg/dL (0.2-1.0); Phosphorus 1.7 mg/dL (2.5-4.90); Total Protein 6.5 g/dL (6.4-8.2)
[2022-01-18] MEDS ORDERED: PHYTONADIONE (VIT K)10 MG/ML 1ML VIAL SUBCUT ONE (08:00)
[2022-01-18] MEDS: Pro-Stat SF 30ml Vanilla PO SCH ×2 (08:00→18:00)
[2022-01-18] MEDS: Glucerna Carbsteady SHAKE Vanilla 8oz PO SCH ×3 (08:00→18:00)
[2022-01-18] MEDS ORDERED: HYDROmorphone HCL 2 MG/ML VL/or syr IV PRN (08:45)
[2022-01-18] MEDS ORDERED: fentaNYL CITRATE 100 MCG/2 ML VL IV PRN (08:45)
[2022-01-18] MEDS ORDERED: MORPHINE SULFATE 4 MG/ML SYR/VIAL IV PRN (08:45)
[2022-01-18] MEDS ORDERED: METOCLOPRAMIDE HCL 5MG/ml INJ 2ml VIAL IV PRN (08:45)
[2022-01-18] MEDS: VANCOMYCIN 1GM/250ML 250 ML IV SCH (09:09)
[2022-01-18] MEDS: ZINC SULFATE 220mg CAP or TAB PO SCH (09:10)
[2022-01-18] MEDS: Juven Orange Powder PACKET 27.5gm PO SCH (09:10)
[2022-01-18] MEDS: SODIUM CHLOR 0.9% PF (SALINE LOCK) 10ML VIAL/SYR IV SCH ×2 (09:10→21:34)
[2022-01-18] MEDS: DAKINS QUARTER STR 0.125% (NaHypochlorite) 473 ML TOPICAL SOL TOP SCH (09:11)
[2022-01-18] MEDS: MULTIPLE VITAMIN TAB PO SCH (09:11)
[2022-01-18] MEDS: ASCORBIC ACID 500 MG TAB PO SCH ×2 (09:11→21:34)
[2022-01-18] MEDS ORDERED: ceFAZolin 1GM/50ML 100 ML IV ONE (09:14)
[2022-01-18] MEDS ORDERED: ceFAZolin 1GM VL ONE ×2 (09:17→10:08)
[2022-01-18] MEDS ORDERED: MEPERIDINE HCL (25 MG/ML) 1ML VIAL ONE (11:24)
[2022-01-18] MEDS ORDERED: METOPROLOL TARTRATE 1MG/1ML-5ML VIAL IV ONE (11:24)
[2022-01-18] MEDS ORDERED: ESMOLOL HCL 10 ML IV ONE (11:24)
[2022-01-18] MEDS ORDERED: POTASSIUM CHLORIDE 20 MEQ, LIDOCAINE 1% (LOCAL ANESTH.) 2 ML in SODIUM CHL 0.9% 100 ML IV ONE (11:30)
[2022-01-18] MEDS ORDERED: MEPERIDINE HCL (25 MG/ML) 1ML VIAL IV ONE (11:45)
[2022-01-18] MEDS ORDERED: POTASSIUM PHOSPHATE 22 MEQ in SODIUM CHL 0.9% 100 ML IV ONE ×2 (17:15→23:00)
[2022-01-18] MEDS: AMINO ACID INFUSION IN D10W 1,000 ML IV SCH (20:31)
[2022-01-18] MEDS: ACETAMINOPHEN 325 MG TAB PO PRN (21:34)
[2022-01-19] VITALS (9 sets, daily range): BP systolic 90–124; BP diastolic 40–59
[2022-01-19] MEDS ORDERED: METOPROLOL TARTRATE 25 MG TAB PO ONE (01:15)
[2022-01-19] MEDS: SOD CHL 0.9%/ KCL 20MEQ 1,000 ML IV SCH ×3 (02:30→22:30)
[2022-01-19] MEDS: CEFEPIME 2 GM in SODIUM CHL 0.9% 50 ML IV SCH ×3 (02:34→18:33)
[2022-01-19] MEDS: VANCOMYCIN 1GM/250ML 250 ML IV SCH (05:24)
[2022-01-19] MEDS: ACCU-CHEK COMFORT CURVE STRIP VI SCH ×3 (05:24→18:00)
[2022-01-19] MEDS: InsuLIN REG 1unit/0.01ml Soln (100units/ml) SC SCH ×3 (05:26→18:00)
[2022-01-19 05:58] LABS: Calcium 7.2 mg/dL (8.5-10.1); Magnesium 1.5 mg/dL (1.6-2.6); Potassium 3.7 mmol/L (3.5-5.1)
[2022-01-19 06:01] LABS: Eosinophils # (auto) 0 10 ^3/uL (0-0.8); Eosinophils % (auto) 0.1 % (0.0-7.0); Neutrophils # (auto) 16.4 10 ^3/uL (1.6-8.6)
[2022-01-19 06:03] LABS: Bilirubin, Total 0.3 mg/dL (0.2-1.0); Phosphorus 2.6 mg/dL (2.5-4.90); Total Protein 5.4 g/dL (6.4-8.2)
[2022-01-19 06:04] LABS: Basophils # (auto) 0.1 10 ^3/uL (0-0.2); Basophils % (auto) 0.5 % (0.0-2.0); Hematocrit 19.6 % (36.0-46.0); Lymphocytes % (auto) 5.2 % (10.0-50.0); Mean Corpuscular Hemoglobin 27.2 pg (28.0-32.0); Mean Corpuscular Hgb Conc. 32.3 g/dL (32.0-36.0); Mean Corpuscular Volume 84.3 fL (80.0-100.0); Monocytes # (auto) 1.5 10 ^3/uL (0-1.3); Monocytes % (auto) 7.7 % (0.0-12.0); Neutrophils % (auto) 86.5 % (37.0-80.0); Red Blood Cells 2.32 10^6/uL (4.0-5.20); Red Cell Distribution Width 14.3 % (11.8-14.3)
[2022-01-19] MEDS: INSULIN LANTUS (GLARGINE) 1 /0.01ml (100units/ml) SC SCH ×2 (06:14→21:14)
[2022-01-19 06:51] LABS: Hemoglobin 6.3 g/dL (12.2-16.2)
[2022-01-19] MEDS: Glucerna Carbsteady SHAKE Vanilla 8oz PO SCH ×3 (08:00→18:00)
[2022-01-19] MEDS: Pro-Stat SF 30ml Vanilla PO SCH ×2 (08:00→18:00)
[2022-01-19] MEDS: SODIUM CHLOR 0.9% PF (SALINE LOCK) 10ML VIAL/SYR IV SCH ×2 (08:53→21:17)
[2022-01-19] MEDS: DAKINS QUARTER STR 0.125% (NaHypochlorite) 473 ML TOPICAL SOL TOP SCH (09:54)
[2022-01-19] MEDS: Juven Orange Powder PACKET 27.5gm PO SCH (09:54)
[2022-01-19] MEDS: METOPROLOL TARTRATE 25 MG TAB PO SCH ×2 (10:00→21:17)
[2022-01-19] MEDS ORDERED: phytonadione 2.5 MG in SODIUM CHL 0.9% 50 ML IV ONE (10:00)
[2022-01-19] MEDS ORDERED: MAGNESIUM SULFATE 1GM/100ML 100 ML IV ONE (10:00)
[2022-01-19 10:09] LABS: Hematocrit 19.8 % (36.0-46.0)
[2022-01-19 10:21] LABS: Hemoglobin 6.4 g/dL (12.2-16.2)
[2022-01-19] MEDS: ZINC SULFATE 220mg CAP or TAB PO SCH (10:25)
[2022-01-19] MEDS: ASCORBIC ACID 500 MG TAB PO SCH ×2 (10:27→21:13)
[2022-01-19] MEDS: MULTIPLE VITAMIN TAB PO SCH (10:28)
[2022-01-19 10:59] LABS: INR 1.2 (0.9-1.15)
[2022-01-19 13:19] LABS: Hematocrit 18.9 % (36.0-46.0)
[2022-01-19 13:37] LABS: Hemoglobin 6.1 g/dL (12.2-16.2)
[2022-01-19] MEDS: ALBUMIN 25% 50 ML IV SCH ×2 (15:06→17:30)
[2022-01-19] MEDS: MORPHINE SULFATE INJ 2 MG/ml SYRG IV PRN (16:47)
[2022-01-19 20:21] LABS: Hematocrit 22.4 % (36.0-46.0); Hemoglobin 7.4 g/dL (12.2-16.2)
[2022-01-19] MEDS: AMINO ACID INFUSION IN D10W 1,000 ML IV SCH (21:13)
[2022-01-20] MEDS: ACCU-CHEK COMFORT CURVE STRIP VI SCH ×5 (00:06→22:26)
[2022-01-20] MEDS: ALBUMIN 25% 50 ML IV SCH (01:45)
[2022-01-20] MEDS: VANCOMYCIN 1GM/250ML 250 ML IV SCH ×2 (02:24→22:07)
[2022-01-20] MEDS: CEFEPIME 2 GM in SODIUM CHL 0.9% 50 ML IV SCH ×3 (03:30→19:39)
[2022-01-20 04:58] VITALS: BP 139/62
[2022-01-20] MEDS: InsuLIN REG 1unit/0.01ml Soln (100units/ml) SC SCH ×5 (06:15→22:26)
[2022-01-20] MEDS: INSULIN LANTUS (GLARGINE) 1 /0.01ml (100units/ml) SC SCH ×2 (06:16→22:25)
[2022-01-20 06:23] LABS: Albumin 1.4 g/dL (3.4-5.0); Calcium 7.3 mg/dL (8.5-10.1); Magnesium 1.8 mg/dL (1.6-2.6); Phosphorus 1.9 mg/dL (2.5-4.90)
[2022-01-20 06:44] LABS: Potassium 2.9 mmol/L (3.5-5.1)
[2022-01-20 07:34] LABS: Eosinophils # (auto) 0.1 10 ^3/uL (0-0.8); Mean Corpuscular Volume 83.9 fL (80.0-100.0); Monocytes # (auto) 1.6 10 ^3/uL (0-1.3); Neutrophils # (auto) 10.3 10 ^3/uL (1.6-8.6); Red Cell Distribution Width 14.5 % (11.8-14.3); White Blood Cell 13.1 10^3/uL (4.4-10.8)
[2022-01-20 07:40] LABS: Basophils # (auto) 0.2 10 ^3/uL (0-0.2); Basophils % (auto) 1.3 % (0.0-2.0); Eosinophils % (auto) 0.9 % (0.0-7.0); Hematocrit 21.3 % (36.0-46.0); Lymphocytes % (auto) 7.5 % (10.0-50.0); Mean Corpuscular Hemoglobin 27.4 pg (28.0-32.0); Mean Corpuscular Hgb Conc. 32.6 g/dL (32.0-36.0); Monocytes % (auto) 12.2 % (0.0-12.0); Neutrophils % (auto) 78.1 % (37.0-80.0); Red Blood Cells 2.54 10^6/uL (4.0-5.20)
[2022-01-20] MEDS: Pro-Stat SF 30ml Vanilla PO SCH ×2 (08:00→18:00)
[2022-01-20] MEDS: Glucerna Carbsteady SHAKE Vanilla 8oz PO SCH ×3 (08:00→18:00)
[2022-01-20] MEDS: SOD CHL 0.9%/ KCL 20MEQ 1,000 ML IV SCH ×2 (08:30→18:30)
[2022-01-20] MEDS: SODIUM CHLOR 0.9% PF (SALINE LOCK) 10ML VIAL/SYR IV SCH ×2 (08:37→22:06)
[2022-01-20 09:00] VITALS: BP 109/61
[2022-01-20] MEDS: METOPROLOL TARTRATE 25 MG TAB PO SCH ×2 (10:00→21:56)
[2022-01-20] MEDS: DAKINS QUARTER STR 0.125% (NaHypochlorite) 473 ML TOPICAL SOL TOP SCH (10:00)
[2022-01-20] MEDS: Juven Orange Powder PACKET 27.5gm PO SCH (10:17)
[2022-01-20] MEDS: ZINC SULFATE 220mg CAP or TAB PO SCH (10:30)
[2022-01-20] MEDS: MULTIPLE VITAMIN TAB PO SCH (10:30)
[2022-01-20] MEDS: ASCORBIC ACID 500 MG TAB PO SCH ×2 (10:30→22:12)
[2022-01-20 13:00] VITALS: BP 110/65
[2022-01-20] MEDS ORDERED: POTASSIUM PHOSPHATE 44 MEQ in D5W 5% 250 ML IV ONE (13:00)
[2022-01-20] MEDS ORDERED: POTASSIUM EFFERVESENT TAB 25 MEQ PO ONE (14:15)
[2022-01-20] MEDS: HYDROcodone-ACET 5/325MG TAB PO PRN ×2 (14:49→23:31)
[2022-01-20 17:00] VITALS: BP 101/56
[2022-01-20 20:00] VITALS: BP 123/62
[2022-01-20] MEDS: AMINO ACID INFUSION IN D10W 1,000 ML IV SCH (21:59)
[2022-01-21] MEDS: CEFEPIME 2 GM in SODIUM CHL 0.9% 50 ML IV SCH ×3 (02:54→20:13)
[2022-01-21] MEDS: SOD CHL 0.9%/ KCL 20MEQ 1,000 ML IV SCH ×2 (04:30→14:30)
[2022-01-21 05:00] VITALS: BP 119/60
[2022-01-21 05:25] LABS: Albumin 1.3 g/dL (3.4-5.0); Calcium 7.5 mg/dL (8.5-10.1); Magnesium 1.5 mg/dL (1.6-2.6); Potassium 3.3 mmol/L (3.5-5.1)
[2022-01-21 05:29] LABS: BUN/Creatinine Ratio 13.6; Bilirubin, Total 0.4 mg/dL (0.2-1.0); Phosphorus 2.6 mg/dL (2.5-4.90); Total Protein 5.9 g/dL (6.4-8.2)
[2022-01-21 05:54] LABS: Eosinophils # (auto) 0.1 10 ^3/uL (0-0.8); Hemoglobin 7.6 g/dL (12.2-16.2); Lymphocytes # (auto) 1.2 10 ^3/uL (0.4-5.4)
[2022-01-21 05:57] LABS: Basophils # (auto) 0 10 ^3/uL (0-0.2); Basophils % (auto) 0.4 % (0.0-2.0); Eosinophils % (auto) 0.9 % (0.0-7.0); Hematocrit 22.7 % (36.0-46.0); Lymphocytes % (auto) 9.4 % (10.0-50.0); Mean Corpuscular Hemoglobin 28.2 pg (28.0-32.0); Mean Corpuscular Hgb Conc. 33.3 g/dL (32.0-36.0); Mean Corpuscular Volume 84.5 fL (80.0-100.0); Monocytes # (auto) 1.6 10 ^3/uL (0-1.3); Monocytes % (auto) 12.5 % (0.0-12.0); Neutrophils # (auto) 9.6 10 ^3/uL (1.6-8.6); Neutrophils % (auto) 76.8 % (37.0-80.0); Nucleated Red Blood Cells % 0.1 %; Red Blood Cells 2.68 10^6/uL (4.0-5.20); Red Cell Distribution Width 14.5 % (11.8-14.3); White Blood Cell 12.5 10^3/uL (4.4-10.8)
[2022-01-21] MEDS: ACCU-CHEK COMFORT CURVE STRIP VI SCH ×3 (06:12→18:00)
[2022-01-21] MEDS: InsuLIN REG 1unit/0.01ml Soln (100units/ml) SC SCH ×4 (06:12→22:50)
[2022-01-21] MEDS: INSULIN LANTUS (GLARGINE) 1 /0.01ml (100units/ml) SC SCH ×2 (06:15→22:50)
[2022-01-21] MEDS: Glucerna Carbsteady SHAKE Vanilla 8oz PO SCH (08:00)
[2022-01-21] MEDS: Pro-Stat SF 30ml Vanilla PO SCH ×2 (08:00→18:00)
[2022-01-21] MEDS: SODIUM CHLOR 0.9% PF (SALINE LOCK) 10ML VIAL/SYR IV SCH ×2 (08:29→22:00)
[2022-01-21] MEDS: DAKINS QUARTER STR 0.125% (NaHypochlorite) 473 ML TOPICAL SOL TOP SCH (08:29)
[2022-01-21 09:00] VITALS: BP 130/54
[2022-01-21] MEDS ORDERED: POTASSIUM EFFERVESENT TAB 25 MEQ PO ONE (09:45)
[2022-01-21] MEDS: Juven Orange Powder PACKET 27.5gm PO SCH (10:00)
[2022-01-21] MEDS: ZINC SULFATE 220mg CAP or TAB PO SCH (10:48)
[2022-01-21] MEDS: MULTIPLE VITAMIN TAB PO SCH (10:49)
[2022-01-21] MEDS: ASCORBIC ACID 500 MG TAB PO SCH ×2 (10:49→22:53)
[2022-01-21] MEDS: METOPROLOL TARTRATE 25 MG TAB PO SCH ×2 (10:49→22:00)
[2022-01-21] MEDS ORDERED: MAGNESIUM SULFATE 1GM/100ML 100 ML IV ONE (11:30)
[2022-01-21] MEDS ORDERED: POTASSIUM PHOSPHATE 22 MEQ in SODIUM CHL 0.9% 100 ML IV ONE (12:30)
[2022-01-21 13:00] VITALS: BP 145/71
[2022-01-21 17:00] VITALS: BP 120/59
[2022-01-21] MEDS: ACETAMINOPHEN 325 MG TAB PO PRN (17:20)
[2022-01-21] MEDS: VANCOMYCIN 1GM/250ML 250 ML IV SCH (18:30)
[2022-01-21] MEDS: CLINIMIX PER PHARMACY IV NR (20:00)
[2022-01-21 22:00] VITALS: BP 101/56
[2022-01-22] MEDS: SOD CHL 0.9%/ KCL 20MEQ 1,000 ML IV SCH ×3 (00:34→20:30)
[2022-01-22] MEDS: HYDROcodone-ACET 5/325MG TAB PO PRN ×2 (02:25→13:24)
[2022-01-22] MEDS: CEFEPIME 2 GM in SODIUM CHL 0.9% 50 ML IV SCH ×2 (02:36→09:10)
[2022-01-22 05:00] VITALS: BP 98/55
[2022-01-22] MEDS: InsuLIN REG 1unit/0.01ml Soln (100units/ml) SC SCH ×4 (06:00→23:53)
[2022-01-22] MEDS: ACCU-CHEK COMFORT CURVE STRIP VI SCH ×5 (06:07→23:53)
[2022-01-22] MEDS: INSULIN LANTUS (GLARGINE) 1 /0.01ml (100units/ml) SC SCH ×2 (06:16→21:46)
[2022-01-22 06:24] LABS: Albumin 1.4 g/dL (3.4-5.0); Calcium 7.5 mg/dL (8.5-10.1); Magnesium 1.8 mg/dL (1.6-2.6); Potassium 3.7 mmol/L (3.5-5.1)
[2022-01-22 06:30] LABS: BUN/Creatinine Ratio 15.3; Bilirubin, Total 0.3 mg/dL (0.2-1.0); Phosphorus 2.2 mg/dL (2.5-4.90); Total Protein 5.9 g/dL (6.4-8.2)
[2022-01-22] MEDS: Pro-Stat SF 30ml Vanilla PO SCH ×2 (08:00→17:59)
[2022-01-22 09:00] VITALS: BP 113/53
[2022-01-22] MEDS ORDERED: POTASSIUM PHOSPHATE 22 MEQ in SODIUM CHL 0.9% 100 ML IV ONE (09:00)
[2022-01-22] MEDS: METOPROLOL TARTRATE 25 MG TAB PO SCH (09:07)
[2022-01-22] MEDS: ZINC SULFATE 220mg CAP or TAB PO SCH (09:07)
[2022-01-22] MEDS: Juven Orange Powder PACKET 27.5gm PO SCH (09:07)
[2022-01-22] MEDS: SODIUM CHLOR 0.9% PF (SALINE LOCK) 10ML VIAL/SYR IV SCH ×2 (09:07→21:46)
[2022-01-22] MEDS: ASCORBIC ACID 500 MG TAB PO SCH ×2 (09:08→21:45)
[2022-01-22] MEDS: MULTIPLE VITAMIN TAB PO SCH (09:08)
[2022-01-22 13:00] VITALS: BP 124/61
[2022-01-22] MEDS ORDERED: SODIUM PHOSPHATES 20 MEQ in SODIUM CHL 0.9% 100 ML IV ONE (13:00)
[2022-01-22] MEDS: metroNIDAZOLE 500MG/100ML 100 ML IV SCH ×2 (18:00→21:45)
[2022-01-22] MEDS: VANCOMYCIN 1GM/250ML 250 ML IV SCH (18:45)
[2022-01-22] MEDS: CLINIMIX PER PHARMACY IV NR (20:24)
[2022-01-22 22:20] VITALS: BP 134/67
[2022-01-23 05:30] LABS: Basophils # (auto) 0.1 10 ^3/uL (0-0.2); Hematocrit 21.3 % (36.0-46.0); Monocytes # (auto) 1.6 10 ^3/uL (0-1.3); Monocytes % (auto) 13.7 % (0.0-12.0)
[2022-01-23 05:33] LABS: Basophils % (auto) 0.8 % (0.0-2.0); Eosinophils # (auto) 0.1 10 ^3/uL (0-0.8); Eosinophils % (auto) 0.6 % (0.0-7.0); Lymphocytes # (auto) 1.4 10 ^3/uL (0.4-5.4); Mean Corpuscular Hemoglobin 27.2 pg (28.0-32.0); Mean Corpuscular Hgb Conc. 32.6 g/dL (32.0-36.0); Mean Corpuscular Volume 83.4 fL (80.0-100.0); Neutrophils # (auto) 8.7 10 ^3/uL (1.6-8.6); Neutrophils % (auto) 72.9 % (37.0-80.0); Red Blood Cells 2.56 10^6/uL (4.0-5.20); Red Cell Distribution Width 14.9 % (11.8-14.3); White Blood Cell 11.9 10^3/uL (4.4-10.8)
[2022-01-23 05:42] VITALS: BP 146/65
[2022-01-23] MEDS: metroNIDAZOLE 500MG/100ML 100 ML IV SCH ×3 (05:48→21:46)
[2022-01-23] MEDS: InsuLIN REG 1unit/0.01ml Soln (100units/ml) SC SCH ×4 (06:00→23:35)
[2022-01-23] MEDS: ACCU-CHEK COMFORT CURVE STRIP VI SCH ×4 (06:17→23:35)
[2022-01-23] MEDS: INSULIN LANTUS (GLARGINE) 1 /0.01ml (100units/ml) SC SCH ×2 (06:18→23:31)
[2022-01-23 06:35] LABS: BUN/Creatinine Ratio 15.7; Calcium 7.2 mg/dL (8.5-10.1)
[2022-01-23 06:36] LABS: Albumin 1.2 g/dL (3.4-5.0); Bilirubin, Total 0.3 mg/dL (0.2-1.0); Magnesium 1.4 mg/dL (1.6-2.6); Phosphorus 2.7 mg/dL (2.5-4.90); Total Protein 5.9 g/dL (6.4-8.2)
[2022-01-23 06:37] LABS: Potassium 2.9 mmol/L (3.5-5.1)
[2022-01-23] MEDS: SOD CHL 0.9%/ KCL 20MEQ 1,000 ML IV SCH ×2 (06:37→16:45)
[2022-01-23 09:00] VITALS: BP 117/59
[2022-01-23] MEDS: Pro-Stat SF 30ml Vanilla PO SCH ×2 (09:00→18:20)
[2022-01-23] MEDS: levoFLOXacin 500MG 100 ML IV SCH (09:37)
[2022-01-23] MEDS: ASCORBIC ACID 500 MG TAB PO SCH ×2 (09:39→21:46)
[2022-01-23] MEDS: MULTIPLE VITAMIN TAB PO SCH (09:39)
[2022-01-23] MEDS: ZINC SULFATE 220mg CAP or TAB PO SCH (09:39)
[2022-01-23] MEDS: VANCOMYCIN 1GM/250ML 250 ML IV SCH (09:43)
[2022-01-23] MEDS: SODIUM CHLOR 0.9% PF (SALINE LOCK) 10ML VIAL/SYR IV SCH ×2 (10:00→21:47)
[2022-01-23] MEDS: MAGNESIUM SULFATE 1GM/100ML 100 ML IV SCH ×2 (11:17→12:28)
[2022-01-23 11:35] LABS: Hemoglobin 7.3 g/dL (12.2-16.2)
[2022-01-23 11:37] LABS: Hematocrit 22.3 % (36.0-46.0)
[2022-01-23] MEDS: POTASSIUM CHL 20MEQ/100ML 100 ML IV SCH ×2 (12:03→14:00)
[2022-01-23 13:00] VITALS: BP 149/50
[2022-01-23] MEDS: Juven Orange Powder PACKET 27.5gm PO SCH (13:30)
[2022-01-23] MEDS: POTASSIUM PHOSP 22MEQ(15MMOLE) in NS 100 ML IV SCH ×2 (15:52→19:55)
[2022-01-23 17:00] VITALS: BP 125/65
[2022-01-23] MEDS: CLINIMIX PER PHARMACY IV NR (19:53)
[2022-01-23 22:05] VITALS: BP 119/61
[2022-01-24] VITALS (8 sets, daily range): BP systolic 113–143; BP diastolic 52–80
[2022-01-24] MEDS: ACETAMINOPHEN 325 MG TAB PO PRN ×2 (01:20→23:58)
[2022-01-24] MEDS: SOD CHL 0.9%/ KCL 20MEQ 1,000 ML IV SCH (01:58)
[2022-01-24] MEDS: InsuLIN REG 1unit/0.01ml Soln (100units/ml) SC SCH ×3 (05:15→17:43)
[2022-01-24] MEDS: VANCOMYCIN 1GM/250ML 250 ML IV SCH (05:15)
[2022-01-24] MEDS: metroNIDAZOLE 500MG/100ML 100 ML IV SCH ×3 (05:15→21:42)
[2022-01-24] MEDS: ACCU-CHEK COMFORT CURVE STRIP VI SCH ×3 (05:16→17:42)
[2022-01-24 06:18] LABS: Eosinophils # (auto) 0.1 10 ^3/uL (0-0.8); Lymphocytes # (auto) 1.5 10 ^3/uL (0.4-5.4); Neutrophils # (auto) 7.2 10 ^3/uL (1.6-8.6); Nucleated Red Blood Cells % 0.1 %; Red Cell Distribution Width 14.8 % (11.8-14.3); White Blood Cell 10.2 10^3/uL (4.4-10.8)
[2022-01-24 06:21] LABS: Basophils # (auto) 0.1 10 ^3/uL (0-0.2); Basophils % (auto) 0.5 % (0.0-2.0); Eosinophils % (auto) 0.9 % (0.0-7.0); Hematocrit 20.8 % (36.0-46.0); Lymphocytes % (auto) 14.9 % (10.0-50.0); Mean Corpuscular Hemoglobin 28.7 pg (28.0-32.0); Mean Corpuscular Hgb Conc. 33.7 g/dL (32.0-36.0); Mean Corpuscular Volume 85.1 fL (80.0-100.0); Monocytes # (auto) 1.3 10 ^3/uL (0-1.3); Monocytes % (auto) 12.9 % (0.0-12.0); Neutrophils % (auto) 70.8 % (37.0-80.0); Red Blood Cells 2.44 10^6/uL (4.0-5.20)
[2022-01-24 06:40] LABS: Albumin 1.2 g/dL (3.4-5.0); BUN/Creatinine Ratio 17.5; Calcium 7.1 mg/dL (8.5-10.1); Magnesium 1.7 mg/dL (1.6-2.6); Phosphorus 2.7 mg/dL (2.5-4.90); Potassium 3.5 mmol/L (3.5-5.1)
[2022-01-24] MEDS: INSULIN LANTUS (GLARGINE) 1 /0.01ml (100units/ml) SC SCH ×2 (06:53→21:48)
[2022-01-24] MEDS ORDERED: SOD CHL 0.9%/ KCL 20MEQ 1,000 ML IV SCH (11:30)
[2022-01-24] MEDS: Pro-Stat SF 30ml Vanilla PO SCH ×2 (11:57→17:43)
[2022-01-24] MEDS: MULTIPLE VITAMIN TAB PO SCH (11:58)
[2022-01-24] MEDS: levoFLOXacin 500MG 100 ML IV SCH (11:58)
[2022-01-24] MEDS: ZINC SULFATE 220mg CAP or TAB PO SCH (11:58)
[2022-01-24] MEDS: SODIUM CHLOR 0.9% PF (SALINE LOCK) 10ML VIAL/SYR IV SCH ×2 (11:58→21:42)
[2022-01-24] MEDS: Juven Orange Powder PACKET 27.5gm PO SCH (12:31)
[2022-01-24] MEDS ORDERED: MAGNESIUM SULFATE 1GM/100ML 100 ML IV ONE (13:00)
[2022-01-24] MEDS ORDERED: POTASSIUM PHOSP 22MEQ(15MMOLE) in NS 100 ML IV ONE (13:00)
[2022-01-24] MEDS: CLINIMIX PER PHARMACY IV NR (21:18)
[2022-01-24 21:59] LABS: Hematocrit 26.7 % (36.0-46.0); Hemoglobin 8.7 g/dL (12.2-16.2)
[2022-01-25] MEDS: ACCU-CHEK COMFORT CURVE STRIP VI SCH ×4 (00:05→18:00)
[2022-01-25] MEDS: VANCOMYCIN 1GM/250ML 250 ML IV SCH ×3 (02:15→22:40)
[2022-01-25 04:48] VITALS: BP 130/58
[2022-01-25 05:33] LABS: Basophils # (auto) 0.1 10 ^3/uL (0-0.2); Basophils % (auto) 0.5 % (0.0-2.0); Eosinophils # (auto) 0.1 10 ^3/uL (0-0.8); Eosinophils % (auto) 0.8 % (0.0-7.0); Hematocrit 26.7 % (36.0-46.0); Hemoglobin 8.9 g/dL (12.2-16.2); Lymphocytes # (auto) 1.6 10 ^3/uL (0.4-5.4); Lymphocytes % (auto) 13.7 % (10.0-50.0); Mean Corpuscular Hemoglobin 28.2 pg (28.0-32.0); Mean Corpuscular Hgb Conc. 33.2 g/dL (32.0-36.0); Mean Corpuscular Volume 84.8 fL (80.0-100.0); Monocytes # (auto) 1.2 10 ^3/uL (0-1.3); Monocytes % (auto) 10.3 % (0.0-12.0); Neutrophils # (auto) 8.5 10 ^3/uL (1.6-8.6); Neutrophils % (auto) 74.7 % (37.0-80.0); Nucleated Red Blood Cells % 0.1 %; Red Blood Cells 3.15 10^6/uL (4.0-5.20); Red Cell Distribution Width 15.4 % (11.8-14.3); White Blood Cell 11.4 10^3/uL (4.4-10.8)
[2022-01-25 05:45] LABS: Albumin 1.3 g/dL (3.4-5.0); BUN/Creatinine Ratio 14.3; Calcium 7.7 mg/dL (8.5-10.1); Magnesium 1.8 mg/dL (1.6-2.6); Total Protein 5.9 g/dL (6.4-8.2)
[2022-01-25 05:49] LABS: Bilirubin, Total 0.4 mg/dL (0.2-1.0); Phosphorus 2.6 mg/dL (2.5-4.90)
[2022-01-25] MEDS: InsuLIN REG 1unit/0.01ml Soln (100units/ml) SC SCH ×4 (06:00→18:00)
[2022-01-25] MEDS: metroNIDAZOLE 500MG/100ML 100 ML IV SCH ×4 (06:00→22:41)
[2022-01-25] MEDS: INSULIN LANTUS (GLARGINE) 1 /0.01ml (100units/ml) SC SCH ×2 (06:53→23:42)
[2022-01-25] MEDS: Pro-Stat SF 30ml Vanilla PO SCH ×2 (08:00→17:45)
[2022-01-25 08:50] VITALS: BP 140/61
[2022-01-25] MEDS ORDERED: MAGNESIUM SULFATE 1GM/100ML 100 ML IV ONE (10:00)
[2022-01-25] MEDS: Juven Orange Powder PACKET 27.5gm PO SCH (10:00)
[2022-01-25] MEDS: SODIUM CHLOR 0.9% PF (SALINE LOCK) 10ML VIAL/SYR IV SCH ×2 (10:00→22:00)
[2022-01-25] MEDS ORDERED: POTASSIUM CHL 20 Meq TABLET PO ONE (11:00)
[2022-01-25] MEDS: POTASSIUM CHL 20MEQ/100ML 100 ML IV SCH ×2 (12:00→12:48)
[2022-01-25] MEDS: MULTIPLE VITAMIN TAB PO SCH (12:01)
[2022-01-25] MEDS: ASCORBIC ACID 500 MG TAB PO SCH (12:01)
[2022-01-25] MEDS: ZINC SULFATE 220mg CAP or TAB PO SCH (12:02)
[2022-01-25] MEDS: levoFLOXacin 500MG 100 ML IV SCH (12:07)
[2022-01-25 13:07] VITALS: BP 155/65
[2022-01-25] MEDS ORDERED: POTASSIUM PHOSPHATE 44 MEQ in D5W 5% 250 ML IV ONE (14:00)
[2022-01-25] MEDS ORDERED: POTASSIUM PHOSP 22MEQ(15MMOLE) in NS 100 ML IV SCH (14:00)
[2022-01-25 17:28] VITALS: BP 106/49
[2022-01-25] MEDS: CLINIMIX PER PHARMACY IV NR (21:36)
[2022-01-25 22:00] VITALS: BP 133/65
[2022-01-26] MEDS: ACCU-CHEK COMFORT CURVE STRIP VI SCH ×4 (00:19→18:00)
[2022-01-26] MEDS: InsuLIN REG 1unit/0.01ml Soln (100units/ml) SC SCH ×4 (00:21→18:00)
[2022-01-26 05:00] VITALS: BP 137/69
[2022-01-26 06:33] LABS: Basophils # (auto) 0.1 10 ^3/uL (0-0.2); Basophils % (auto) 0.5 % (0.0-2.0); Eosinophils # (auto) 0.1 10 ^3/uL (0-0.8); Eosinophils % (auto) 0.5 % (0.0-7.0); Hematocrit 26.9 % (36.0-46.0); Hemoglobin 9.2 g/dL (12.2-16.2); Lymphocytes # (auto) 1.7 10 ^3/uL (0.4-5.4); Lymphocytes % (auto) 12.8 % (10.0-50.0); Mean Corpuscular Hemoglobin 28.9 pg (28.0-32.0); Mean Corpuscular Hgb Conc. 34.2 g/dL (32.0-36.0); Mean Corpuscular Volume 84.5 fL (80.0-100.0); Monocytes # (auto) 1.2 10 ^3/uL (0-1.3); Monocytes % (auto) 9.2 % (0.0-12.0); Neutrophils # (auto) 10.1 10 ^3/uL (1.6-8.6); Nucleated Red Blood Cells % 0.1 %; Red Blood Cells 3.19 10^6/uL (4.0-5.20); Red Cell Distribution Width 15.4 % (11.8-14.3); White Blood Cell 13.1 10^3/uL (4.4-10.8)
[2022-01-26] MEDS: metroNIDAZOLE 500MG/100ML 100 ML IV SCH ×3 (06:45→21:12)
[2022-01-26] MEDS: INSULIN LANTUS (GLARGINE) 1 /0.01ml (100units/ml) SC SCH ×2 (06:48→22:20)
[2022-01-26 06:52] LABS: Albumin 1.4 g/dL (3.4-5.0); BUN/Creatinine Ratio 9.5; Calcium 7.6 mg/dL (8.5-10.1); Magnesium 1.8 mg/dL (1.6-2.6); Phosphorus 2.8 mg/dL (2.5-4.90); Potassium 3.4 mmol/L (3.5-5.1)
[2022-01-26] MEDS: Pro-Stat SF 30ml Vanilla PO SCH ×2 (08:00→18:00)
[2022-01-26 09:00] VITALS: BP 125/67
[2022-01-26] MEDS: levoFLOXacin 500MG 100 ML IV SCH (09:57)
[2022-01-26] MEDS: SODIUM CHLOR 0.9% PF (SALINE LOCK) 10ML VIAL/SYR IV SCH ×2 (09:57→22:18)
[2022-01-26] MEDS: MULTIPLE VITAMIN TAB PO SCH (09:58)
[2022-01-26] MEDS: ZINC SULFATE 220mg CAP or TAB PO SCH (09:58)
[2022-01-26] MEDS: ASCORBIC ACID 500 MG TAB PO SCH (09:58)
[2022-01-26] MEDS: Juven Orange Powder PACKET 27.5gm PO SCH (09:58)
[2022-01-26] MEDS ORDERED: ceFAZolin 1GM VL ONE (11:01)
[2022-01-26] MEDS ORDERED: NEOMYCIN-BACITRACIN-POLYM 15GM TOP OINT TOP ONE (11:01)
[2022-01-26] MEDS ORDERED: ROPIVACAINE 0.5% (5MG/ML) 20ML AMPULE IJ ONE (11:01)
[2022-01-26] MEDS ORDERED: POTASSIUM CHL 20MEQ/100ML 100 ML IV ONE (11:15)
[2022-01-26] MEDS ORDERED: METOCLOPRAMIDE HCL 5MG/ml INJ 2ml VIAL IV PRN (11:15)
[2022-01-26] MEDS ORDERED: HYDROmorphone HCL 2 MG/ML VL/or syr IV PRN ×2 (11:15)
[2022-01-26] MEDS ORDERED: fentaNYL CITRATE 100 MCG/2 ML VL IV PRN (11:15)
[2022-01-26] MEDS ORDERED: MORPHINE SULFATE 4 MG/ML SYR/VIAL IV PRN (11:15)
[2022-01-26] MEDS ORDERED: ONDANSETRON HCL 4 MG/2 ML VIAL ONE (11:32)
[2022-01-26] MEDS ORDERED: PROPOFOL 10 MG/ML 20 ML IV ONE (11:32)
[2022-01-26] MEDS ORDERED: SODIUM CHLORIDE LOCK 10 ML ONE (11:32)
[2022-01-26] MEDS ORDERED: MIDAZOLAM HCL 2MG/2ML 2ml VIAL (1mg/ml) ONE (11:32)
[2022-01-26] MEDS ORDERED: fentaNYL CITRATE 100 MCG/2 ML VL ONE (11:32)
[2022-01-26] MEDS ORDERED: ceFAZolin 1GM/50ML 100 ML IV ONE (12:21)
[2022-01-26 17:00] VITALS: BP 134/77
[2022-01-26] MEDS: VANCOMYCIN 1GM/250ML 250 ML IV SCH (17:58)
[2022-01-26] MEDS: CLINIMIX PER PHARMACY IV NR (21:13)
[2022-01-26 22:00] VITALS: BP 97/43
[2022-01-27] MEDS: ACCU-CHEK COMFORT CURVE STRIP VI SCH ×4 (01:12→18:00)
[2022-01-27 04:19] LABS: Basophils # (auto) 0.1 10 ^3/uL (0-0.2); Basophils % (auto) 0.5 % (0.0-2.0); Eosinophils # (auto) 0.1 10 ^3/uL (0-0.8); Eosinophils % (auto) 1.1 % (0.0-7.0); Hematocrit 27.1 % (36.0-46.0); Hemoglobin 8.7 g/dL (12.2-16.2); Lymphocytes # (auto) 1.5 10 ^3/uL (0.4-5.4); Lymphocytes % (auto) 11.3 % (10.0-50.0); Mean Corpuscular Hemoglobin 27.9 pg (28.0-32.0); Mean Corpuscular Hgb Conc. 32.3 g/dL (32.0-36.0); Mean Corpuscular Volume 86.5 fL (80.0-100.0); Monocytes # (auto) 1.4 10 ^3/uL (0-1.3); Monocytes % (auto) 10.5 % (0.0-12.0); Neutrophils # (auto) 9.9 10 ^3/uL (1.6-8.6); Neutrophils % (auto) 76.6 % (37.0-80.0); Red Blood Cells 3.13 10^6/uL (4.0-5.20); Red Cell Distribution Width 15.5 % (11.8-14.3); White Blood Cell 12.9 10^3/uL (4.4-10.8)
[2022-01-27 04:40] LABS: Potassium 3.1 mmol/L (3.5-5.1)
[2022-01-27 04:50] LABS: Albumin 1.4 g/dL (3.4-5.0); Calcium 7.4 mg/dL (8.5-10.1); Magnesium 1.5 mg/dL (1.6-2.6); Phosphorus 2.4 mg/dL (2.5-4.90)
[2022-01-27 05:00] VITALS: BP 131/65
[2022-01-27] MEDS: InsuLIN REG 1unit/0.01ml Soln (100units/ml) SC SCH ×4 (06:00→19:18)
[2022-01-27] MEDS: metroNIDAZOLE 500MG/100ML 100 ML IV SCH ×2 (06:32→14:00)
[2022-01-27] MEDS: INSULIN LANTUS (GLARGINE) 1 /0.01ml (100units/ml) SC SCH ×2 (06:38→22:00)
[2022-01-27 08:00] VITALS: BP 117/59
[2022-01-27 09:00] VITALS: BP 117/59
[2022-01-27] MEDS: levoFLOXacin 500MG 100 ML IV SCH (10:02)
[2022-01-27] MEDS: MORPHINE SULFATE INJ 2 MG/ml SYRG IV PRN (10:03)
[2022-01-27] MEDS: ZINC SULFATE 220mg CAP or TAB PO SCH (10:03)
[2022-01-27] MEDS: MULTIPLE VITAMIN TAB PO SCH (10:04)
[2022-01-27] MEDS: Juven Orange Powder PACKET 27.5gm PO SCH (10:04)
[2022-01-27] MEDS: Pro-Stat SF 30ml Vanilla PO SCH ×2 (10:04→18:00)
[2022-01-27] MEDS: ASCORBIC ACID 500 MG TAB PO SCH (10:04)
[2022-01-27] MEDS: MAGNESIUM SULFATE 1GM/100ML 100 ML IV SCH ×2 (10:06→11:00)
[2022-01-27] MEDS: POTASSIUM CHL 20MEQ/100ML 100 ML IV SCH ×2 (10:06→13:11)
[2022-01-27] MEDS: SODIUM CHLOR 0.9% PF (SALINE LOCK) 10ML VIAL/SYR IV SCH (10:07)
[2022-01-27 13:03] VITALS: BP 131/59
[2022-01-27] MEDS: VANCOMYCIN 1GM/250ML 250 ML IV SCH (14:00)
[2022-01-27] MEDS ORDERED: POTASSIUM PHOSPHATE 44 MEQ in D5W 5% 250 ML IV ONE (14:00)
[2022-01-27 17:00] VITALS: BP 143/81
[2022-01-27] MEDS: CLINIMIX PER PHARMACY IV NR (20:45)
[2022-01-27 22:00] VITALS: BP 117/63
[2022-01-28] MEDS: SODIUM CHLOR 0.9% PF (SALINE LOCK) 10ML VIAL/SYR IV SCH ×3 (00:11→22:14)
[2022-01-28] MEDS: metroNIDAZOLE 500MG/100ML 100 ML IV SCH ×4 (00:11→22:14)
[2022-01-28] MEDS: ACCU-CHEK COMFORT CURVE STRIP VI SCH ×5 (00:23→23:52)
[2022-01-28] MEDS: InsuLIN REG 1unit/0.01ml Soln (100units/ml) SC SCH ×5 (00:24→23:57)
[2022-01-28 04:31] VITALS: BP 110/64
[2022-01-28 06:29] LABS: Basophils # (auto) 0.1 10 ^3/uL (0-0.2); Basophils % (auto) 0.5 % (0.0-2.0); Eosinophils # (auto) 0.2 10 ^3/uL (0-0.8); Eosinophils % (auto) 1.4 % (0.0-7.0); Hematocrit 26.7 % (36.0-46.0); Hemoglobin 8.7 g/dL (12.2-16.2); Lymphocytes # (auto) 1.5 10 ^3/uL (0.4-5.4); Mean Corpuscular Hemoglobin 27.5 pg (28.0-32.0); Mean Corpuscular Hgb Conc. 32.5 g/dL (32.0-36.0); Mean Corpuscular Volume 84.5 fL (80.0-100.0); Monocytes # (auto) 1.3 10 ^3/uL (0-1.3); Monocytes % (auto) 11.6 % (0.0-12.0); Neutrophils # (auto) 8.4 10 ^3/uL (1.6-8.6); Neutrophils % (auto) 73.5 % (37.0-80.0); Red Blood Cells 3.16 10^6/uL (4.0-5.20); Red Cell Distribution Width 15.7 % (11.8-14.3); White Blood Cell 11.4 10^3/uL (4.4-10.8)
[2022-01-28 06:43] LABS: Albumin 1.5 g/dL (3.4-5.0); Calcium 7.7 mg/dL (8.5-10.1); Magnesium 1.6 mg/dL (1.6-2.6); Potassium 3.2 mmol/L (3.5-5.1)
[2022-01-28 06:45] LABS: BUN/Creatinine Ratio 8.3
[2022-01-28 06:58] LABS: Bilirubin, Total 0.2 mg/dL (0.2-1.0); Phosphorus 2.8 mg/dL (2.5-4.90); Total Protein 5.8 g/dL (6.4-8.2)
[2022-01-28] MEDS: INSULIN LANTUS (GLARGINE) 1 /0.01ml (100units/ml) SC SCH ×2 (06:59→22:15)
[2022-01-28] MEDS: Pro-Stat SF 30ml Vanilla PO SCH ×2 (08:00→16:30)
[2022-01-28 08:30] VITALS: BP 134/67
[2022-01-28 09:00] VITALS: BP 140/62
[2022-01-28] MEDS: Juven Orange Powder PACKET 27.5gm PO SCH (10:00)
[2022-01-28] MEDS: POTASSIUM CHL 20MEQ/100ML 100 ML IV SCH ×2 (10:00→14:15)
[2022-01-28] MEDS: MAGNESIUM SULFATE 1GM/100ML 100 ML IV SCH ×2 (10:00→14:16)
[2022-01-28] MEDS: ZINC SULFATE 220mg CAP or TAB PO SCH (10:25)
[2022-01-28] MEDS: ASCORBIC ACID 500 MG TAB PO SCH (10:25)
[2022-01-28] MEDS: MULTIPLE VITAMIN TAB PO SCH (10:25)
[2022-01-28] MEDS: VANCOMYCIN 1GM/250ML 250 ML IV SCH (10:26)
[2022-01-28] MEDS: levoFLOXacin 500MG 100 ML IV SCH (10:41)
[2022-01-28 12:59] VITALS: BP 134/67
[2022-01-28] MEDS ORDERED: POTASSIUM PHOSPHATE 22 MEQ in SODIUM CHL 0.9% 100 ML IV ONE (14:00)
[2022-01-28] MEDS ORDERED: MAGNESIUM SULFATE 1GM/100ML 100 ML IV ONE (14:14)
[2022-01-28 17:00] VITALS: BP 134/65
[2022-01-28] MEDS ORDERED: ENOXAPARIN SOD 40 MG/0.4 ML SYRINGE SC ONE (17:30)
[2022-01-28 22:00] VITALS: BP 132/68
[2022-01-28] MEDS: CLINIMIX PER PHARMACY IV NR (22:14)
[2022-01-29 05:00] VITALS: BP 129/60
[2022-01-29] MEDS: metroNIDAZOLE 500MG/100ML 100 ML IV SCH ×3 (05:03→22:15)
[2022-01-29 05:42] LABS: Albumin 1.5 g/dL (3.4-5.0); BUN/Creatinine Ratio 8.3; Calcium 7.6 mg/dL (8.5-10.1); Magnesium 1.6 mg/dL (1.6-2.6); Potassium 3.5 mmol/L (3.5-5.1)
[2022-01-29 05:45] LABS: Bilirubin, Total 0.3 mg/dL (0.2-1.0); Phosphorus 2.5 mg/dL (2.5-4.90); Total Protein 5.3 g/dL (6.4-8.2)
[2022-01-29] MEDS: InsuLIN REG 1unit/0.01ml Soln (100units/ml) SC SCH ×2 (06:00→11:47)
[2022-01-29] MEDS: ACCU-CHEK COMFORT CURVE STRIP VI SCH ×2 (06:09→11:43)
[2022-01-29] MEDS: INSULIN LANTUS (GLARGINE) 1 /0.01ml (100units/ml) SC SCH ×2 (06:11→22:18)
[2022-01-29] MEDS: VANCOMYCIN 1GM/250ML 250 ML IV SCH ×2 (06:15→22:16)
[2022-01-29] MEDS: Pro-Stat SF 30ml Vanilla PO SCH ×2 (08:00→16:32)
[2022-01-29 09:00] VITALS: BP 134/75
[2022-01-29] MEDS ORDERED: POTASSIUM PHOSP 22MEQ(15MMOLE) in NS 100 ML IV ONE (09:00)
[2022-01-29] MEDS: MULTIPLE VITAMIN TAB PO SCH (09:06)
[2022-01-29] MEDS: ASCORBIC ACID 500 MG TAB PO SCH (09:07)
[2022-01-29] MEDS: ZINC SULFATE 220mg CAP or TAB PO SCH (09:07)
[2022-01-29] MEDS: ENOXAPARIN SOD 40 MG/0.4 ML SYRINGE SC SCH (09:08)
[2022-01-29] MEDS: levoFLOXacin 500MG 100 ML IV SCH (09:12)
[2022-01-29] MEDS: SODIUM CHLOR 0.9% PF (SALINE LOCK) 10ML VIAL/SYR IV SCH ×2 (09:16→22:14)
[2022-01-29] MEDS: Juven Orange Powder PACKET 27.5gm PO SCH (09:17)
[2022-01-29] MEDS: MAGNESIUM SULFATE 1GM/100ML 100 ML IV SCH ×2 (09:46→10:00)
[2022-01-29] MEDS ORDERED: MAGNESIUM OXIDE 400 MG TAB PO ONE (12:15)
[2022-01-29 13:00] VITALS: BP 99/57
[2022-01-29 17:00] VITALS: BP 145/68
[2022-01-29 22:00] VITALS: BP 130/58
[2022-01-30 05:00] VITALS: BP 126/58
[2022-01-30] MEDS: metroNIDAZOLE 500MG/100ML 100 ML IV SCH (05:28)
[2022-01-30] MEDS: INSULIN LANTUS (GLARGINE) 1 /0.01ml (100units/ml) SC SCH ×2 (05:36→22:07)
[2022-01-30 06:23] LABS: Albumin 1.6 g/dL (3.4-5.0); BUN/Creatinine Ratio 8.5; Calcium 7.9 mg/dL (8.5-10.1); Magnesium 1.7 mg/dL (1.6-2.6); Phosphorus 3.7 mg/dL (2.5-4.90); Potassium 3.5 mmol/L (3.5-5.1)
[2022-01-30 06:25] LABS: Basophils # (auto) 0.1 10 ^3/uL (0-0.2); Basophils % (auto) 0.4 % (0.0-2.0); Eosinophils # (auto) 0.1 10 ^3/uL (0-0.8); Eosinophils % (auto) 0.8 % (0.0-7.0); Hematocrit 28.7 % (36.0-46.0); Hemoglobin 9.5 g/dL (12.2-16.2); Lymphocytes # (auto) 1.6 10 ^3/uL (0.4-5.4); Lymphocytes % (auto) 12.7 % (10.0-50.0); Mean Corpuscular Volume 84.7 fL (80.0-100.0); Monocytes # (auto) 1.3 10 ^3/uL (0-1.3); Monocytes % (auto) 10.5 % (0.0-12.0); Neutrophils # (auto) 9.4 10 ^3/uL (1.6-8.6); Neutrophils % (auto) 75.6 % (37.0-80.0); Red Blood Cells 3.39 10^6/uL (4.0-5.20); Red Cell Distribution Width 15.8 % (11.8-14.3); White Blood Cell 12.4 10^3/uL (4.4-10.8)
[2022-01-30] MEDS: Pro-Stat SF 30ml Vanilla PO SCH (08:00)
[2022-01-30 09:00] VITALS: BP 108/57
[2022-01-30] MEDS: MULTIPLE VITAMIN TAB PO SCH (10:00)
[2022-01-30] MEDS: ASCORBIC ACID 500 MG TAB PO SCH (10:00)
[2022-01-30] MEDS: SODIUM CHLOR 0.9% PF (SALINE LOCK) 10ML VIAL/SYR IV SCH ×2 (10:00→22:01)
[2022-01-30] MEDS: Juven Orange Powder PACKET 27.5gm PO SCH (10:00)
[2022-01-30] MEDS: levoFLOXacin 500MG 100 ML IV SCH (10:00)
[2022-01-30] MEDS: ENOXAPARIN SOD 40 MG/0.4 ML SYRINGE SC SCH (10:00)
[2022-01-30] MEDS: MAGNESIUM OXIDE 400 MG TAB PO SCH (10:00)
[2022-01-30] MEDS: ZINC SULFATE 220mg CAP or TAB PO SCH (10:00)
[2022-01-30 13:00] VITALS: BP 128/62
[2022-01-30] MEDS: VANCOMYCIN 1GM/250ML 250 ML IV SCH (14:00)
[2022-01-30] MEDS: metroNIDAZOLE 500 MG TAB PO SCH ×2 (16:29→22:01)
[2022-01-30 17:00] VITALS: BP 119/54
[2022-01-30 21:47] VITALS: BP 142/76
[2022-01-31 05:00] VITALS: BP 137/68
[2022-01-31] MEDS: VANCOMYCIN 1GM/250ML 250 ML IV SCH ×2 (05:27→12:39)
[2022-01-31] MEDS: metroNIDAZOLE 500 MG TAB PO SCH ×2 (05:27→14:39)
[2022-01-31] MEDS: INSULIN LANTUS (GLARGINE) 1 /0.01ml (100units/ml) SC SCH (05:38)
[2022-01-31] MEDS: Pro-Stat SF 30ml Vanilla PO SCH (07:45)
[2022-01-31 09:00] VITALS: BP 116/55
[2022-01-31] MEDS: ZINC SULFATE 220mg CAP or TAB PO SCH (10:33)
[2022-01-31] MEDS: levoFLOXacin 500MG 100 ML IV SCH (10:33)
[2022-01-31] MEDS: SODIUM CHLOR 0.9% PF (SALINE LOCK) 10ML VIAL/SYR IV SCH (10:33)
[2022-01-31] MEDS: ASCORBIC ACID 500 MG TAB PO SCH (10:34)
[2022-01-31] MEDS: Juven Orange Powder PACKET 27.5gm PO SCH (10:34)
[2022-01-31] MEDS: MULTIPLE VITAMIN TAB PO SCH (10:34)
[2022-01-31] MEDS: ENOXAPARIN SOD 40 MG/0.4 ML SYRINGE SC SCH (10:34)
[2022-01-31] MEDS: MAGNESIUM OXIDE 400 MG TAB PO SCH (10:34)
[2022-01-31 13:00] VITALS: BP 128/73
[2022-01-31 13:10] VITALS: BP 128/73
[2022-02-01] MEDS ORDERED: VANCOMYCIN 1GM/250ML 250 ML IV SCH (01:00)
== END 2022-01-31 18:15 | disposition home health service (06) | DRG 853 ==
LOC: ER 18:55 → TELE 01-07 01:50 → TELE-EAST 01-08 02:15 → EAST 01-09 18:40 → TELE-EAST 01-17 09:59 → EAST 01-22 12:09 → TELE-EAST 01-28 11:28 → EAST 01-29 15:00
PROVIDERS: ADMIT Nurse Practitioner Family; ATTEND Internal Medicine
PROC: 0J9R0ZX Drainage of Left Foot Subcutaneous Tissue and Fascia, Open Approach, Diagnostic (ICD-10-PCS; principal; 2022-01-11 07:45)
PROC: 30233K1 Transfusion of Nonautologous Frozen Plasma into Peripheral Vein, Percutaneous Approach (ICD-10-PCS; 2022-01-17)
PROC: 0Y6N0Z9 Detachment at Left Foot, Partial 1st Ray, Open Approach (ICD-10-PCS; 2022-01-18)
PROC: 0Y6N0ZB Detachment at Left Foot, Partial 2nd Ray, Open Approach (ICD-10-PCS; 2022-01-18)
PROC: 0Y6N0ZC Detachment at Left Foot, Partial 3rd Ray, Open Approach (ICD-10-PCS; 2022-01-18)
PROC: 0Y6N0ZD Detachment at Left Foot, Partial 4th Ray, Open Approach (ICD-10-PCS; 2022-01-18)
PROC: 0Y6N0ZF Detachment at Left Foot, Partial 5th Ray, Open Approach (ICD-10-PCS; 2022-01-18)
PROC: 30233N1 Transfusion of Nonautologous Red Blood Cells into Peripheral Vein, Percutaneous Approach (ICD-10-PCS; 2022-01-19)
PROC: 05HC33Z Insertion of Infusion Device into Left Basilic Vein, Percutaneous Approach (ICD-10-PCS; 2022-01-24)
PROC: B54NZZA Ultrasonography of Left Upper Extremity Veins, Guidance (ICD-10-PCS; 2022-01-24)
PROC: 0JBR0ZZ Excision of Left Foot Subcutaneous Tissue and Fascia, Open Approach (ICD-10-PCS; 2022-01-26)
DX: A40.9 Streptococcal sepsis, unspecified (principal); E11.10 Type 2 diabetes mellitus with ketoacidosis without coma; E43 Unspecified severe protein-calorie malnutrition; L02.612 Cutaneous abscess of left foot; L03.116 Cellulitis of left lower limb; N39.0 Urinary tract infection, site not specified; E87.0 Hyperosmolality and hypernatremia; E11.52 Type 2 diabetes mellitus with diabetic peripheral angiopathy with gangrene; E87.1 Hypo-osmolality and hyponatremia; M86.8X7 Other osteomyelitis, ankle and foot; Z20.822 Contact with and (suspected) exposure to COVID-19; E11.621 Type 2 diabetes mellitus with foot ulcer; E11.65 Type 2 diabetes mellitus with hyperglycemia; L08.9 Local infection of the skin and subcutaneous tissue, unspecified; E88.09 Other disorders of plasma-protein metabolism, not elsewhere classified; L97.529 Non-pressure chronic ulcer of other part of left foot with unspecified severity; E87.6 Hypokalemia; E11.40 Type 2 diabetes mellitus with diabetic neuropathy, unspecified; D64.9 Anemia, unspecified; D75.838 Other thrombocytosis; L97.519 Non-pressure chronic ulcer of other part of right foot with unspecified severity; I10 Essential (primary) hypertension; Z79.4 Long term (current) use of insulin; Z79.84 Long term (current) use of oral hypoglycemic drugs; Z89.432 Acquired absence of left foot; Z68.22 Body mass index [BMI] 22.0-22.9, adult
CPT/HCPCS: 36415; 36569; 71045; 73630; 73700; 73718; 80048; 80053; 80069; 80202; 81001; 82962; 83036; 83605; 83735; 84100; 84132; 85007; 85014; 85018; 85025; 85027; 85045; 85610; 85652; 85730; 86850; 86900; 86901; 86920; 87040; 87070; 87075; 87076; 87077; 87081; 87086; 87186; 87205; 93005; 93926; 96365; 96367; 96375; 97110; 97116; 97163; 97530; 99291; G0378; J0690; J1815; J1956; J2001; J2250; J2405; J2704; J3430; J3480; J3490; J7060; P9047

== ENCOUNTER 2022-03-13 18:29 | Inpatient (IN) | payer OTHER, MEDICAID ==
[~2022-03-13] VITALS: Ht 170.2 cm; Wt 77.6 kg
[~2022-03-13 18:29] MED LIST: METF-372 PO
[2022-03-13 20:43] LABS: Basophils % (auto) 0.5 % (0.0-2.0); Eosinophils # (auto) 0.1 10 ^3/uL (0-0.8); Lymphocytes # (auto) 2.1 10 ^3/uL (0.4-5.4); Monocytes # (auto) 0.5 10 ^3/uL (0-1.3); Red Cell Distribution Width 15.9 % (11.8-14.3)
[2022-03-13 20:46] LABS: Basophils # (auto) 0 10 ^3/uL (0-0.2); Eosinophils % (auto) 1.4 % (0.0-7.0); Hematocrit 36.3 % (36.0-46.0); Hemoglobin 11.5 g/dL (12.2-16.2); Mean Corpuscular Hemoglobin 26.4 pg (28.0-32.0); Mean Corpuscular Hgb Conc. 31.8 g/dL (32.0-36.0); Monocytes % (auto) 5.5 % (0.0-12.0); Neutrophils # (auto) 6.8 10 ^3/uL (1.6-8.6); Neutrophils % (auto) 70.6 % (37.0-80.0); Nucleated Red Blood Cells % 0.1 %; Red Blood Cells 4.38 10^6/uL (4.0-5.20); White Blood Cell 9.7 10^3/uL (4.4-10.8)
[2022-03-13 20:56] LABS: Alanine Aminotransferase 13 U/L (13-56); Albumin 2.5 g/dL (3.4-5.0); Anion Gap 11 (5-15); Aspartate Aminotransferase 12 U/L (15-37); BUN/Creatinine Ratio 4.8; Blood Urea Nitrogen 5 mg/dL (7-18); Calcium 8.1 mg/dL (8.5-10.1); Carbon Dioxide 24 mmol/L (21-32); Chloride 102 mmol/L (98-107); GFR African American 67 mL/min; GFR Non-African American 56 mL/min; Glucose 120 mg/dL (74-106); Potassium 3.7 mmol/L (3.5-5.1); Sodium 137 mmol/L (136-145)
[2022-03-13 20:58] LABS: Alkaline Phosphatase 192 U/L (45-117); Bilirubin, Total 0.5 mg/dL (0.2-1.0)
[2022-03-13] MEDS ORDERED: CLINDAMYCIN 600MG IV 50 ML IV ONE (23:00)
[2022-03-13] MEDS ORDERED: cefTRIAXone 1GM/50ML D5W 50 ML IV ONE (23:00)
[2022-03-13] MEDS ORDERED: ONDANSETRON HCL 4 MG/2 ML VIAL IV PRN (23:15)
[2022-03-13] MEDS ORDERED: DEXTROSE (50%) 50ML SYRG IV PRN (23:15)
[2022-03-13] MEDS ORDERED: HYDROcodone-ACET 5/325MG TAB PO PRN (23:15)
[2022-03-13] MEDS ORDERED: ACETAMINOPHEN 325 MG TAB PO PRN (23:15)
[2022-03-14] MEDS ORDERED: ceFAZolin 1GM VL ONE (06:41)
[2022-03-14] MEDS ORDERED: ROPIVACAINE 0.5% (5MG/ML) 20ML AMPULE IJ ONE (06:41)
[2022-03-14 06:53] LABS: Basophils # (auto) 0 10 ^3/uL (0-0.2); Basophils % (auto) 0.7 % (0.0-2.0); Eosinophils # (auto) 0.1 10 ^3/uL (0-0.8); Eosinophils % (auto) 2.1 % (0.0-7.0); Hematocrit 30.8 % (36.0-46.0); Hemoglobin 10.3 g/dL (12.2-16.2); Lymphocytes # (auto) 1.7 10 ^3/uL (0.4-5.4); Lymphocytes % (auto) 26.5 % (10.0-50.0); Mean Corpuscular Hemoglobin 27.2 pg (28.0-32.0); Mean Corpuscular Hgb Conc. 33.3 g/dL (32.0-36.0); Mean Corpuscular Volume 81.7 fL (80.0-100.0); Monocytes # (auto) 0.6 10 ^3/uL (0-1.3); Monocytes % (auto) 8.8 % (0.0-12.0); Neutrophils # (auto) 4.1 10 ^3/uL (1.6-8.6); Neutrophils % (auto) 61.9 % (37.0-80.0); Red Blood Cells 3.77 10^6/uL (4.0-5.20); Red Cell Distribution Width 15.8 % (11.8-14.3); White Blood Cell 6.6 10^3/uL (4.4-10.8)
[2022-03-14] MEDS: InsuLIN REG 1unit/0.01ml Soln (100units/ml) SC SCH ×4 (07:00→22:30)
[2022-03-14 07:07] LABS: BUN/Creatinine Ratio 6.1; Potassium 3.1 mmol/L (3.5-5.1)
[2022-03-14] MEDS: ACCU-CHEK COMFORT CURVE STRIP VI SCH ×4 (07:15→22:00)
[2022-03-14] MEDS: CLINDAMYCIN 600MG IV 50 ML IV SCH ×2 (08:00→15:56)
[2022-03-14] MEDS: PANTOPRAZOLE 40 MG TAB PO SCH (10:00)
[2022-03-14] MEDS: HCTZ 25 MG TAB PO SCH (10:00)
[2022-03-14] MEDS: cefTRIAXone 1GM/50ML D5W 50 ML IV SCH (22:00)
[2022-03-14 23:14] VITALS: BP_SYST 105; BP_SYST 122; BP_DIAS 61; BP_DIAS 62
[2022-03-15] MEDS: CLINDAMYCIN 600MG IV 50 ML IV SCH ×4 (01:51→21:22)
[2022-03-15 05:00] VITALS: BP 124/61
[2022-03-15] MEDS: ACCU-CHEK COMFORT CURVE STRIP VI SCH ×4 (06:33→21:23)
[2022-03-15] MEDS: InsuLIN REG 1unit/0.01ml Soln (100units/ml) SC SCH ×4 (06:34→21:25)
[2022-03-15 08:24] VITALS: BP 102/57
[2022-03-15] MEDS: HCTZ 25 MG TAB PO SCH (08:59)
[2022-03-15] MEDS: PANTOPRAZOLE 40 MG TAB PO SCH (08:59)
[2022-03-15 12:53] VITALS: BP 132/72
[2022-03-15 16:37] VITALS: BP 140/74
[2022-03-15] MEDS: cefTRIAXone 1GM/50ML D5W 50 ML IV SCH (21:22)
[2022-03-15 22:00] VITALS: BP 131/72
[2022-03-16 05:00] VITALS: BP 118/62
[2022-03-16 05:08] LABS: Basophils # (auto) 0 10 ^3/uL (0-0.2); Eosinophils # (auto) 0.1 10 ^3/uL (0-0.8); Eosinophils % (auto) 2.5 % (0.0-7.0); Lymphocytes # (auto) 1.7 10 ^3/uL (0.4-5.4)
[2022-03-16 05:10] LABS: Basophils % (auto) 0.7 % (0.0-2.0); Hematocrit 28.4 % (36.0-46.0); Hemoglobin 9.5 g/dL (12.2-16.2); Lymphocytes % (auto) 29.4 % (10.0-50.0); Mean Corpuscular Hemoglobin 27.5 pg (28.0-32.0); Mean Corpuscular Hgb Conc. 33.6 g/dL (32.0-36.0); Mean Corpuscular Volume 81.9 fL (80.0-100.0); Monocytes # (auto) 0.7 10 ^3/uL (0-1.3); Monocytes % (auto) 11.4 % (0.0-12.0); Neutrophils # (auto) 3.3 10 ^3/uL (1.6-8.6); Red Blood Cells 3.47 10^6/uL (4.0-5.20); Red Cell Distribution Width 15.5 % (11.8-14.3); White Blood Cell 5.9 10^3/uL (4.4-10.8)
[2022-03-16 05:31] LABS: Calcium 7.9 mg/dL (8.5-10.1); Potassium 3.2 mmol/L (3.5-5.1)
[2022-03-16 05:34] LABS: BUN/Creatinine Ratio 4.5
[2022-03-16] MEDS: CLINDAMYCIN 600MG IV 50 ML IV SCH ×3 (05:37→21:33)
[2022-03-16] MEDS: InsuLIN REG 1unit/0.01ml Soln (100units/ml) SC SCH ×4 (07:00→21:59)
[2022-03-16] MEDS: ACCU-CHEK COMFORT CURVE STRIP VI SCH ×4 (07:06→21:46)
[2022-03-16 08:30] VITALS: BP 125/64
[2022-03-16] MEDS: HCTZ 25 MG TAB PO SCH (10:00)
[2022-03-16] MEDS: PANTOPRAZOLE 40 MG TAB PO SCH (10:00)
[2022-03-16 13:28] VITALS: BP 138/71
[2022-03-16 16:11] VITALS: BP 136/77
[2022-03-16] MEDS: cefTRIAXone 1GM/50ML D5W 50 ML IV SCH (21:34)
[2022-03-16 22:00] VITALS: BP 116/80
[2022-03-17 05:00] VITALS: BP 122/44
[2022-03-17] MEDS: CLINDAMYCIN 600MG IV 50 ML IV SCH ×3 (06:27→22:49)
[2022-03-17] MEDS: ACCU-CHEK COMFORT CURVE STRIP VI SCH ×4 (06:29→22:00)
[2022-03-17] MEDS: InsuLIN REG 1unit/0.01ml Soln (100units/ml) SC SCH ×4 (06:29→22:00)
[2022-03-17 09:00] VITALS: BP 119/70
[2022-03-17] MEDS: HCTZ 25 MG TAB PO SCH (10:00)
[2022-03-17] MEDS: PANTOPRAZOLE 40 MG TAB PO SCH ×2 (10:00→11:03)
[2022-03-17 13:00] VITALS: BP 108/66
[2022-03-17 16:57] VITALS: BP 141/82
[2022-03-17 22:00] VITALS: BP 127/69
[2022-03-17] MEDS: cefTRIAXone 1GM/50ML D5W 50 ML IV SCH (22:49)
[2022-03-18 05:00] VITALS: BP 131/80
[2022-03-18] MEDS: CLINDAMYCIN 600MG IV 50 ML IV SCH ×3 (06:12→21:38)
[2022-03-18] MEDS: ACCU-CHEK COMFORT CURVE STRIP VI SCH ×4 (06:19→21:54)
[2022-03-18] MEDS: InsuLIN REG 1unit/0.01ml Soln (100units/ml) SC SCH ×4 (06:19→21:56)
[2022-03-18 09:00] VITALS: BP 135/70
[2022-03-18] MEDS: HCTZ 25 MG TAB PO SCH (10:00)
[2022-03-18] MEDS: PANTOPRAZOLE 40 MG TAB PO SCH (10:00)
[2022-03-18 13:00] VITALS: BP 138/71
[2022-03-18 17:54] VITALS: BP 104/74
[2022-03-18] MEDS: cefTRIAXone 1GM/50ML D5W 50 ML IV SCH (21:44)
[2022-03-18 22:11] VITALS: BP 144/78
[2022-03-19 05:16] VITALS: BP 142/72
[2022-03-19] MEDS: ACCU-CHEK COMFORT CURVE STRIP VI SCH ×3 (05:45→17:27)
[2022-03-19] MEDS: CLINDAMYCIN 600MG IV 50 ML IV SCH ×2 (06:03→13:34)
[2022-03-19] MEDS: InsuLIN REG 1unit/0.01ml Soln (100units/ml) SC SCH ×3 (06:37→17:00)
[2022-03-19 09:00] VITALS: BP 130/66
[2022-03-19] MEDS: PANTOPRAZOLE 40 MG TAB PO SCH (09:55)
[2022-03-19] MEDS: HCTZ 25 MG TAB PO SCH (09:55)
[2022-03-19 13:00] VITALS: BP 137/71
[2022-03-19] MEDS ORDERED: HYDR-4902 PO (16:16)
[2022-03-19] MEDS ORDERED: CLIN300C8 PO (16:16)
[2022-03-19] MEDS ORDERED: HYDR25TA5 PO (16:16)
[2022-03-19 17:00] VITALS: BP 137/80
[2022-03-19 17:42] VITALS: BP 137/80
[2022-03-19] MEDS ORDERED: Juven Orange Powder PACKET 27.5gm PO SCH (18:00)
== END 2022-03-19 18:42 | disposition home health service (06) | DRG 637 ==
LOC: ER 18:30 → OVERFLOW 23:10 → CENTRAL 03-14 22:58
PROVIDERS: ADMIT Nurse Practitioner; ATTEND Internal Medicine
DX: E11.69 Type 2 diabetes mellitus with other specified complication (principal); E43 Unspecified severe protein-calorie malnutrition; M86.172 Other acute osteomyelitis, left ankle and foot; L03.116 Cellulitis of left lower limb; I12.9 Hypertensive chronic kidney disease with stage 1 through stage 4 chronic kidney disease, or unspecified chronic kidney disease; E11.22 Type 2 diabetes mellitus with diabetic chronic kidney disease; Z20.822 Contact with and (suspected) exposure to COVID-19; N18.30 Chronic kidney disease, stage 3 unspecified; Z80.0 Family history of malignant neoplasm of digestive organs; Z83.3 Family history of diabetes mellitus; Z89.422 Acquired absence of other left toe(s); Z68.25 Body mass index [BMI] 25.0-25.9, adult; Z79.84 Long term (current) use of oral hypoglycemic drugs; E11.628 Type 2 diabetes mellitus with other skin complications; E11.65 Type 2 diabetes mellitus with hyperglycemia
CPT/HCPCS: 36415; 71045; 73700; 73718; 80048; 80053; 82962; 85025; 85652; 87205; 87426; 96365; G0378; J0690; J0696; J1815; J2405; J3490